=== PATIENT | female | born 1940 | race Caucasian/White ===

== ENCOUNTER 2018-12-19 14:25 | Inpatient (IN) | payer MEDICARE, OTHER ==
[~2018-12-19] VITALS: Ht 157.5 cm; Wt 51.3 kg
[2018-12-19] MEDS ORDERED: IPRATROPIUM BROMIDE 0.02% 2.5 ML NEB ONE (14:43)
[2018-12-19] MEDS ORDERED: LEVALBUTEROL HCL SOLN NEBU 1.25 MG/3 ML NEB ONE (14:44)
[2018-12-19] MEDS ORDERED: METHYLPREDNISOLONE SOD SUCC 125 MG/2ML VIAL IV ONE (15:00)
[2018-12-19] MEDS ORDERED: ALBUTEROL/IPRATROPIUM 3 ML NEB NEB ONE (15:00)
[2018-12-19 15:14] LABS: BASOPHILS # (AUTO) 0.1 (0.0-0.1); BASOPHILS % 0.4 % (0.0-1.0); EOSINOPHILS # (AUTO) 0.3 (0.0-0.4); EOSINOPHILS % 1.1 % (0.0-6.0); HEMATOCRIT 40.3 % (34.2-44.1); HEMOGLOBIN 12.8 g/dL (12.0-16.0); LYMPHOCYTES # (AUTO) 2.5 (1.0-3.2); LYMPHOCYTES % 9.9 % (18.0-39.1); MEAN CORPUSCULAR HEMOGLOBIN 27.6 pg (28-32); MEAN CORPUSCULAR HGB CONC 31.8 g/dL (31-35); MEAN CORPUSCULAR VOLUME 86.9 fL (81-99); MONOCYTES # (AUTO) 2.3 (0.2-0.8); MONOCYTES % 9.1 % (4.4-11.3); NEUTROPHILS % 78.8 % (38.7-80.0); PLATELET COUNT 409 x10e3/uL (140-360); RED BLOOD COUNT 4.64 x10e6/uL (3.6-5.1); RED CELL DISTRIBUTION WIDTH 13.6 % (11.7-14.4)
[2018-12-19 15:26] LABS: INR 0.98; PROTHROMBIN TIME 13.5 seconds (11.9-14.5)
[2018-12-19 15:35] LABS: ALBUMIN/GLOBULIN RATIO 0.6 (0.8-2.0); ANION GAP 16.2 mmol/L (8-16); CALCIUM 9.9 mg/dL (8.4-10.2); CREATINE KINASE 32 IU/L (29-168); CREATININE, SERUM 0.99 mg/dL (0.57-1.11); POTASSIUM 3.2 mmol/L (3.5-5.1)
--- NOTE | 2018-12-19 16:03 | Diagnostic Imaging Report ---
Examination: Single AP view of the chest. COMPARISON: None. INDICATION: Shortness of breath DISCUSSION: Lines/tubes: None. Lungs: Lungs are hyperinflated. No consolidation. Age-related interstitial change. Pleura: There is no pleural effusion or pneumothorax. Heart and mediastinum: The heart and the mediastinum are unremarkable. Bones and soft tissues: No acute bony abnormalities. IMPRESSION: 1. No acute cardiopulmonary abnormalities. Signed by: Dr. Finesse Zheng M.D. on 12/19/2018 4:00 PM
[2018-12-19] MEDS ORDERED: SODIUM CHLORIDE 0.9% 1000ML 1,000 ML IV SCH (17:00)
--- NOTE | 2018-12-19 17:52 | Diagnostic Imaging Report ---
EXAMINATION: CT scan of the chest with contrast. TECHNIQUE: Helical CT images of the chest were performed from the lung apices to the level of the adrenal glands after the intravenous administration of 100 cc of Isovue 300. Coronal and sagittal reformatted images were obtained.Dose modulation, iterative reconstruction, and/or weight based adjustment of the mA/kV was utilized to reduce the radiation dose to as low as reasonably achievable. COMPARISON: None. CLINICAL HISTORY:Chest pain DISCUSSION: LINES/TUBES: None. LUNGS AND AIRWAYS: The lungs are hyperinflated with emphysematous change. Mild reticulations at the lung bases. Scattered Tree-in-bud nodularity in the right lower lung image 64 and 53 for example. No pulmonary embolism. PLEURA: No pneumothorax or pleural effusions. HEART AND MEDIASTINUM: The thyroid gland is normal. The heart and pericardium are within normal limits. LYMPH NODES: There is no mediastinal, hilar or axillary lymphadenopathy. ABDOMEN: Limited contrast-enhanced views of the upper abdomen show no abnormality within the visualized liver, spleen, pancreas, or kidneys. The adrenal glands are normal. BONES AND SOFT TISSUES: No acute bony abnormalities. IMPRESSION: No pulmonary embolism. Pulmonary edema. Scattered tree-in-bud nodularity predominantly in the right lower lung may reflect infectious bronchiolitis or aspiration. Signed by: Dr. Finesse Zheng M.D. on 12/19/2018 5:49 PM
[2018-12-19] MEDS ORDERED: AZITHROMYCIN 250MG/NS 100 ML 100 ML IV SCH (18:15)
[2018-12-19] MEDS ORDERED: SODIUM CHLORIDE 0.9% 50ML 50 ML ONE (18:27)
[2018-12-19] MEDS ORDERED: IOPAMIDOL 370 MG/ML 200 ML INFUS..BTL INJ ONE (18:27)
--- OUTSIDE RECORDS SUMMARY | 2018-12-19 18:27 | XMS REPORT ---
Author Author [facility] Address Unknown Phone Unavailable Care Team Providers Care Bus Monitor Name Role Phone Noy BENTON Unavailable Unavailable Layla OCAMPO Unavailable Unavailable DR GE VALLES Unavailable Unavailable SAM JACOBSON Unavailable Unavailable DR AJIT RUSSELL Unavailable Unavailable Problems This patient has no known problems. Allergies, Adverse Reactions, Alerts This patient has no known allergies or adverse reactions. Medications This patient has no known medications. Results Test Description Test Time Test Comments Text Results Atomic Results Result Comments CT CHEST W 2018-12-19 17:45:00 [place] [address] Patient Name: CARL MARTINEZ MR #: [id number] : 1940 Age/Sex: 78/F Req #: [id number] Adm Physician: Ordered by: JOSE BENTON MD Report #: [id number] Location: ER Room/Bed: Procedure: [id number] CT/CT CHEST W Exam Date: 12/19/18 Exam Time: 1727 REPORT STATUS: Signed EXAMINATION: CT scan of the chest with contrast. TECHNIQUE: Helical CT images of the chest were performed from the lung apices to the level of the adrenal glands after the intravenous administration of 100 cc of Isovue 300. Coronal and sagittal reformatted images were obtained.Dose modulation, iterative reconstruction, and/or weight based adjustment of the mA/kV was utilized to reduce the radiation dose to as low as reasonably achievable. COMPARISON: None. CLINICAL HISTORY:Chest pain DISCUSSION: LINES/TUBES: None. LUNGS AND AIRWAYS: The lungs are hyperinflated with emphysematous change. Mild reticulations at the lung bases. Scattered Tree-in-bud nodularity in the right lower lung image 64 and 53 for example. No pulmonary embolism. PLEURA: No pneumothorax or pleural effusions. HEART AND MEDIASTINUM: The thyroid gland is normal. The heart and pericardium are within normal limits. LYMPH NODES: There is no mediastinal, hilar or axillary lymphadenopathy. ABDOMEN: Limited contrast- enhanced views of the upper abdomen show no abnormality within the visualized liver, spleen, pancreas, or kidneys. The adrenal glands are normal. BONES AND SOFT TISSUES: No acute bony abnormalities. IMPRESSION: No pulmonary embolism. Pulmonary edema. Scattered tree-in-bud nodularity predominantly in the right lower lung may reflect infectious bronchiolitis or aspiration. Signed by: Dr. Too Welsh M.D. on 12/19/2018 5:49 PM Dictated By: TOO WELSH MD 48 Transcribed By: KENNETH on 12/19/181748 COPY TO: JOSE BENTON MD CHEST SINGLE (PORTABLE) 2018-12-19 15:59:00 [place] [address] Patient Name: CARL MARTINEZ MR #: [id number] : 1940 Age/Sex: 78/F Req #: [id number] Adm Physician: Ordered by: JOSE BENTON MD Report #: [id number] Location: ER Room/Bed: Procedure: [id number] DX/CHEST SINGLE (PORTABLE) Exam Date: 12/19/18 Exam Time: 1500 REPORT STATUS: Signed Examination: Single AP view of the chest. COMPARISON: None. INDICATION: Shortness of breath DISCUSSION: Lines/tubes: None. Lungs: Lungs are hyperinflated. No consolidation. Age-related interstitial change. Pleura: There is no pleural effusion or pneumothorax. Heart and mediastinum: The heart and the mediastinum are unremarkable. Bones and soft tissues: No acute bony abnormalities. IMPRESSION: 1. No acute cardiopulmonary abnormalities. Signed by: Dr. Too Welsh M.D. on 12/19/2018 4:00 PM Dictated By: TOO WELSH MD 1600 Transcribed By: KENNETH on 12/19/18 1600 COPY TO: JOSE BENTON MD CULTURE, BLOOD 2018-09-22 16:03:00 Specimen: BloodCollected: 09/17/2018 01:43 Status: Final Last Updated: 09/22/2018 16:03 Culture Result (Final) (Final) No Growth After 5 Days CULTURE, ANAEROBE BLOOD 2018-09-22 16:03:00 Specimen: BloodCollected: 09/17/2018 01:43 Status: Final Last Updated: 09/22/2018 16:03 Culture Result (Final) (Final) No Growth After 5 Days CULTURE, BLOOD 2018-09-22 16:03:00 To start 15mins after 1st culture Specimen: BloodCollected: 09/17/2018 01:43 Status: Final Last Updated: 09/22/2018 16:03 (1) To start 15mins after 1st culture Culture Result (Final) (Final) No Growth After 5 Days CULTURE, ANAEROBE BLOOD 2018-09-22 16:03:00 Specimen: BloodCollected: 09/17/2018 01:43 Status: Final Last Updated: 09/22/2018 16:03 Culture Result (Final) (Final) No Growth After 5 Days [facility] 2018-09-18 05:02:00 Glucose (test code=GLU) 129 mg/dl 75-110 BUN (test code=BUN) 36.0 mg/dl 6.0-17.0 Creatinine (test code=CREA) 0.9 mg/dl 0.4-1.2 Sodium (test code=NA) 142 mmol/l 137-145 Potassium (test code=K) 4.2 mmol/l 3.5-5.0 Chloride (test code=CL) 109 mmol/l 98-107 CO2 (test code=CO2) 27 mmol/l 22-30 Calcium (test code=CALC) 7.9 mg/dl 8.4-10.2 EGFR if (test code=EGFRAA) >60 mL/min/1.73m\\S\\2 EGFR if Non- (test code=EGFRNA) >60 mL/min/1.73m\\S\\2 Estimated Glomerular Filtration Rate (eGFR) Reference Intervals Decision Points for 18 years and older and average body mass: >=60 Does not exclude kidney disease. 30 - 59 Suggests moderate chronic kidney disease and indicates the need for further investigation including assessment of proteinuria and cardiovascular factors. < 30 Usually indicates a need for referral for assessment and management of chronic kidney failure. CBC WITH AUTO [id number] 04:54:00* Test Item Value Reference Range Comments WBC (test code=WBC) 8.04 10\\S\\3/ul 4.80-10.80 RBC (test code=RBC) 4.05 10\\S\\6/ul 4.20-5.40 Hemoglobin (test code=HGB) 11.7 gm/dl 12.0-14.0 Hematocrit (test code=HCT) 36.8 % 37.0-47.0 MCV (test code=MCV) 90.9 fL 81.0-99.0 MCH (test code=MCH) 28.9 pg 27.0-31.0 MCHC (test code=MCHC) 31.8 gm/dl 33.0-37.0 RDW (test code=RDWVC) 14.6 % 11.5-14.5 Platelet (test code=PLT) 247 10\\S\\3/ul 130-400 MPV (test code=MPV) 11.3 fL 7.4-10.4 NE% (test code=NE) 91.8 % 42.0-75.0 LY% (test code=LY) 5.6 % 13.0-42.0 MO% (test code=MO) 1.5 % 4.0-14.0 EO% (test code=EO) 0.0 % 1.0-5.0 BA% (test code=BA) 0.1 % 0.0-3.0 IG% (test code=IG%) 1.0 % 0.0-0.4 LACTIC ACID [id number] 05:24:00* Test Item Value Reference Range Comments LACTATE (test code=LAC) 1.0 mmol/l 0.7-2.0 URINALYSIS WITH [id number] 02:20:00* Test Item Value Reference Range Comments Color (test code=UCOLR) LT. YELLOW Clarity (test code=UCLAR) CLEAR Glucose (test code=UGLUC) NEGATIVE NEGATIVE Bilirubin (test code=UBILI) NEGATIVE NEGATIVE Ketones (test code=UKET) NEGATIVE NEGATIVE Specific [place] (test code=USPGR) 1.010 1.005-1.030 Blood (test code=UBLD) NEGATIVE NEGATIVE PH (test code=UPH) 5.0 4.5-8.0 Protein (test code=UPROT) NEGATIVE NEGATIVE Urobilinogen (test code=U UROB) 0.2 >0.2 Nitrite (test code=UNITR) NEGATIVE NEGATIVE Leukocyte Esterase (test code=ULEUK) NEGATIVE NEGATIVE WBC (test code=WBCUR) 0-5 0-5 RBC (test code=RBCUR) None Seen 0-5 Epithial Cells (test code=U EPI) 0-5 0-10 Mucous (test code=UMUC) None Seen None Seen Bacteria (test code=UBACT) None Seen None Seen,Trace [id number] 01:51:00* Test Item Value Reference Range Comments Glucose (test code=GLU) 140 mg/dl 75-110 BUN (test code=BUN) 52.0 mg/dl 6.0-17.0 Creatinine (test code=CREA) 1.3 mg/dl 0.4-1.2 Sodium (test code=NA) 135 mmol/l 137-145 Potassium (test code=K) 3.7 mmol/l 3.5-5.0 Chloride (test code=CL) 101 mmol/l 98-107 CO2 (test code=CO2) 28 mmol/l 22-30 Calcium (test code=CALC) 8.0 mg/dl 8.4-10.2 EGFR if (test code=EGFRAA) 51 mL/min/1.73m\\S\\2 EGFR if Non- (test code=EGFRNA) 42 mL/min/1.73m\\S\\2 Estimated Glomerular Filtration Rate (eGFR) Reference Intervals Decision Points for 18 years and older and average body mass: >=60 Does not exclude kidney disease. 30 - 59 Suggests moderate chronic kidney disease and indicates the need for further investigation including assessment of proteinuria and cardiovascular factors. < 30 Usually indicates a need for referral for assessment and management of chronic kidney failure. CBC WITH AUTO [id number] 01:38:00* Test Item Value Reference Range Comments WBC (test code=WBC) 9.75 10\\S\\3/ul 4.80-10.80 RBC (test code=RBC) 3.95 10\\S\\6/ul 4.20-5.40 Hemoglobin (test code=HGB) 11.7 gm/dl 12.0-14.0 Hematocrit (test code=HCT) 35.6 % 37.0-47.0 MCV (test code=MCV) 90.1 fL 81.0-99.0 MCH (test code=MCH) 29.6 pg 27.0-31.0 MCHC (test code=MCHC) 32.9 gm/dl 33.0-37.0 RDW (test code=RDWVC) 14.7 % 11.5-14.5 Platelet (test code=PLT) 256 10\\S\\3/ul 130-400 MPV (test code=MPV) 11.2 fL 7.4-10.4 "NOT MEASURED" RESULTS ARE DISPLAYED WHEN THE INSTRUMENT HAS A SUPPRESSED OR UNREPORTABLE RESULT. THIS WILL MOST OFTEN HAPPEN WITH THE MPV WHEN THERE IS AN ABNORMAL PLATELET DISTRIBUTION DUE TO A CR ITICAL LOW VALUE OR PLATELET CLUMPING. THE RDW MAY BE SUPPRESSED IF THERE ARE MULTIPLE PEAKS PRESENT ON THE RBC HISTOGRAM. IN THIS CASE, A MANUAL REVIEW OF THE SLIDE WILL BE PERFORMED, AND RBC MORPHOLOGY WILL BE NOTED ON THE REPORT. NE% (test code=NE) 90.2 % 42.0-75.0 LY% (test code=LY) 3.5 % 13.0-42.0 MO% (test code=MO) 5.5 % 4.0-14.0 EO% (test code=EO) 0.0 % 1.0-5.0 BA% (test code=BA) 0.1 % 0.0-3.0 IG% (test code=IG%) 0.7 % 0.0-0.4 [id number] 15:26:00* Test Item Value Reference Range Comments pH (ABG) (test code=BGPH) 7.391 7.350-7.450 pCO2(T) (test code=BGPCO2(T)) 42.8 mm Hg 35.0-45.0 pO2(T) (test code=BGPO2(T)) 67.3 mm Hg 80.0-100.0 sO2 (test code=BGSO2) 94.7 % 90.0-99.0 Na+ (test code=BGCNA+) 137.9 mmol/l 135.0-148.0 K+ (test code=BGCK+) 3.86 mmol/l 3.50-4.50 Ca2+ (test code=BGCCA2+) 1.190 mmol/l 1.120-1.320 Cl- (test code=BGCCL-) 98 mmol/l 98-107 tHb (test code=BGCTHB) 12.0 gm/dl 11.5-17.4 Hct (test code=BGHCT) 42.9 35.0-50.0 O2Hb (test code=WILS3EE) 93.3 % 95.0-99.0 COHb (test code=BGFCOHB) <2.80 % 0.5-2.5 MetHB (test code=BGMETHB) <1.30 % 0.4-1.5 Gluc (test code=BGCGLU) 159.0 mg/dl 60.0-110.0 Lac (test code=BGCLAC) 2.60 mmol/l 1.0-1.7 Barometric Pressure (test code=BGBARO) 763.4 mm Hg 450.0-1000.0 BE(act) (test code=BGBEACT) 1 mmol/l HCO3 (test code=BGHCO3) 25 meq/L 22-26 ctCO2(B) (test code=BGCTCO2(B)) 23 mmol/l FIO2 (fO2(I) (test code=BGFIO2) 0.28 % Drawn By (test code=BGDRAWNBY) KATINA CONNOLLY Collection Date (test code=BGDTCOL) 09/16/2018 Collection Time (test code=BGCTM) 15:16 Sample Site (test code=BGSAMPLESITE) R Brachial Sample Type (test code=BGSAMPLETYPE) Arterial Allens Test (test code=BGALLEN) Acceptable Notified By (test code=BGNOTIFIEDBY) KATINA CONNOLLY Notified Whom (test code=BGNOTIFIEDWHOM) Dr cOampo Date Notified (test code=BGDTNOTIFIED) 09/16/2018 Time Notified (test code=BGTMNOTIFIED) 15:24 O2 Device (test code=[id number]) Nasal Cannula Instrument ID (test code=BGINSTRID) [id number] Reported By (test code=BGREPORTEDBY) KATINA CONNOLLY LACTIC ACID [id number] 11:58:00* Test Item Value Reference Range Comments LACTATE (test code=LAC) 3.7 mmol/l 0.7-2.0 Critical values were called to Treasure De La Torre RN by [id number] on 09/16/18 11:58 AUDIO/VISUAL OPERATOR. Results were not read back.XR CHEST AP/PA 1 [id number] 10:53:27A single frontal view of the chest.HISTORY: Cough, shortness of breath, COPDCOMPARISON: Chest radiograph September 12, 2018.DISCUSSION:Portable technique, which partially limits sensitivity and specificity.Overlying monitoring leads.Tubes/Lines: NoneLungs and pleura:Stable appearing biapical pleural-parenchymal scarring.The lungs are mildly hyperinflated.No evidence of a consolidative pneumonia or pulmonary alveolar edema.No definite pleural effusion or pneumothorax is ident ified.Heart and mediastinum:The cardiomediastinal silhouette appears unremarkabl e.Bones and soft tissues:Unremarkable, given this limited evaluation.IMPRESSION: Persistent hyperinflation, compatible with the provided history of COPD.This fin al report was electronically signed by Dr Ryan Hooper DO 09/16/201810:47 AMDicta mejia By: Zan HOOPERte: 09/16/2018 10:[id number] 05:37:00* Test Item Value Reference Range Comments Magnesium (test code=MG) 2.3 mg/dl 1.6-2.6 [id number] 05:21:00* Test Item Value Reference Range Comments Glucose (test code=GLU) 146 mg/dl 75-110 BUN (test code=BUN) 40.0 mg/dl 6.0-17.0 Creatinine (test code=CREA) 1.0 mg/dl 0.4-1.2 Sodium (test code=NA) 138 mmol/l 137-145 Potassium (test code=K) 4.1 mmol/l 3.5-5.0 Chloride (test code=CL) 101 mmol/l 98-107 CO2 (test code=CO2) 32 mmol/l 22-30 Calcium (test code=CALC) 9.1 mg/dl 8.4-10.2 EGFR if (test code=EGFRAA) >60 mL/min/1.73m\\S\\2 EGFR if Non- (test code=EGFRNA) 57 mL/min/1.73m\\S\\2 Estimated Glomerular Filtration Rate (eGFR) Reference Intervals Decision Points for 18 years and older and average body mass: >=60 Does not exclude kidney disease. 30 - 59 Suggests moderate chronic kidney disease and indicates the need for further investigation including assessment of proteinuria and cardiovascular factors. < 30 Usually indicates a need for referral for assessment and management of chronic kidney failure. CBC WITH AUTO [id number] 04:49:00* Test Item Value Reference Range Comments WBC (test code=WBC) 8.38 10\\S\\3/ul 4.80-10.80 RBC (test code=RBC) 4.05 10\\S\\6/ul 4.20-5.40 Hemoglobin (test code=HGB) 11.7 gm/dl 12.0-14.0 Hematocrit (test code=HCT) 36.9 % 37.0-47.0 MCV (test code=MCV) 91.1 fL 81.0-99.0 MCH (test code=MCH) 28.9 pg 27.0-31.0 MCHC (test code=MCHC) 31.7 gm/dl 33.0-37.0 RDW (test code=RDWVC) 14.4 % 11.5-14.5 Platelet (test code=PLT) 243 10\\S\\3/ul 130-400 MPV (test code=MPV) 11.0 fL 7.4-10.4 NE% (test code=NE) 89.0 % 42.0-75.0 LY% (test code=LY) 5.8 % 13.0-42.0 MO% (test code=MO) 4.7 % 4.0-14.0 EO% (test code=EO) 0.0 % 1.0-5.0 BA% (test code=BA) 0.0 % 0.0-3.0 IG% (test code=IG%) 0.5 % 0.0-0.4 [id number] 05:55:00* Test Item Value Reference Range Comments Glucose (test code=GLU) 126 mg/dl 75-110 BUN (test code=BUN) 27.0 mg/dl 6.0-17.0 Creatinine (test code=CREA) 0.8 mg/dl 0.4-1.2 Sodium (test code=NA) 137 mmol/l 137-145 Potassium (test code=K) 4.3 mmol/l 3.5-5.0 Chloride (test code=CL) 100 mmol/l 98-107 CO2 (test code=CO2) 30 mmol/l 22-30 Calcium (test code=CALC) 9.3 mg/dl 8.4-10.2 EGFR if (test code=EGFRAA) >60 mL/min/1.73m\\S\\2 EGFR if Non- (test code=EGFRNA) >60 mL/min/1.73m\\S\\2 Estimated Glomerular Filtration Rate (eGFR) Reference Intervals Decision Points for 18 years and older and average body mass: >=60 Does not exclude kidney disease. 30 - 59 Suggests moderate chronic kidney disease and indicates the need for further investigation including assessment of proteinuria and cardiovascular factors. < 30 Usually indicates a need for referral for assessment and management of chronic kidney failure. CBC WITH AUTO [id number] 05:24:00* Test Item Value Reference Range Comments WBC (test code=WBC) 9.28 10\\S\\3/ul 4.80-10.80 RBC (test code=RBC) 4.06 10\\S\\6/ul 4.20-5.40 Hemoglobin (test code=HGB) 11.9 gm/dl 12.0-14.0 Hematocrit (test code=HCT) 36.5 % 37.0-47.0 MCV (test code=MCV) 89.9 fL 81.0-99.0 MCH (test code=MCH) 29.3 pg 27.0-31.0 MCHC (test code=MCHC) 32.6 gm/dl 33.0-37.0 RDW (test code=RDWVC) 14.1 % 11.5-14.5 Platelet (test code=PLT) 261 10\\S\\3/ul 130-400 MPV (test code=MPV) 10.8 fL 7.4-10.4 "NOT MEASURED" RESULTS ARE DISPLAYED WHEN THE INSTRUMENT HAS A SUPPRESSED OR UNREPORTABLE RESULT. THIS WILL MOST OFTEN HAPPEN WITH THE MPV WHEN THERE IS AN ABNORMAL PLATELET DISTRIBUTION DUE TO A CR ITICAL LOW VALUE OR PLATELET CLUMPING. THE RDW MAY BE SUPPRESSED IF THERE ARE MULTIPLE PEAKS PRESENT ON THE RBC HISTOGRAM. IN THIS CASE, A MANUAL REVIEW OF THE SLIDE WILL BE PERFORMED, AND RBC MORPHOLOGY WILL BE NOTED ON THE REPORT. NE% (test code=NE) 84.0 % 42.0-75.0 LY% (test code=LY) 8.4 % 13.0-42.0 MO% (test code=MO) 7.2 % 4.0-14.0 EO% (test code=EO) 0.0 % 1.0-5.0 BA% (test code=BA) 0.1 % 0.0-3.0 IG% (test code=IG%) 0.3 % 0.0-0.4 [id number] 18:37:00* Test Item Value Reference Range Comments Glucose (test code=GLU) 147 mg/dl 74-106 BUN (test code=BUN) 16.0 mg/dl 7.0-18.0 Creatinine (test code=CREA) 0.8 mg/dl 0.5-1.3 Sodium (test code=NA) 136 mmol/l 137-145 Potassium (test code=K) 4.7 mmol/l 3.5-5.1 Chloride (test code=CL) 101 mmol/l 98-107 CO2 (test code=CO2) 27 mmol/l 21-32 Calcium (test code=CALC) 8.7 mg/dl 8.5-10.1 EGFR if (test code=EGFRAA) >60 mL/min/1.73m\\S\\2 EGFR if Non- (test code=EGFRNA) >60 mL/min/1.73m\\S\\2 Estimated Glomerular Filtration Rate (eGFR) Reference Intervals Decision Points for 18 years and older and average body mass: >=60 Does not exclude kidney disease. 30 - 59 Suggests moderate chronic kidney disease and indicates the need for further investigation including assessment of proteinuria and cardiovascular factors. < 30 Usually indicates a need for referral for assessment and management of chronic kidney failure. CBC WITH AUTO [id number] 18:35:00* Test Item Value Reference Range Comments WBC (test code=WBC) 3.78 10\\S\\3/ul 4.80-10.80 RBC (test code=RBC) 4.82 10\\S\\6/ul 4.20-5.40 Hemoglobin (test code=HGB) 13.8 gm/dl 12.0-14.0 Hematocrit (test code=HCT) 44.3 % 37.0-47.0 MCV (test code=MCV) 91.9 fL 81.0-99.0 MCH (test code=MCH) 28.6 pg 27.0-31.0 MCHC (test code=MCHC) 31.2 gm/dl 33.0-37.0 RDW (test code=RDWVC) 14.3 % 11.5-14.5 Platelet (test code=PLT) 186 10\\S\\3/ul 130-400 MPV (test code=MPV) 11.4 fL 7.4-10.4 NE% (test code=NE) 82.7 % 42.0-75.0 LY% (test code=LY) 14.6 % 13.0-42.0 MO% (test code=MO) 2.1 % 4.0-14.0 EO% (test code=EO) 0.0 % 1.0-5.0 BA% (test code=BA) 0.3 % 0.0-3.0 IG% (test code=IG%) 0.3 % 0.0-0.4 [id number] 14:57:00* Test Item Value Reference Range Comments Magnesium (test code=MG) 3.9 mg/dl 1.6-2.6 [id number] 14:55:00* Test Item Value Reference Range Comments Glucose (test code=GLU) 112 mg/dl 75-110 BUN (test code=BUN) 14.0 mg/dl 6.0-17.0 Creatinine (test code=CREA) 0.8 mg/dl 0.4-1.2 Sodium (test code=NA) 137 mmol/l 137-145 Potassium (test code=K) 4.4 mmol/l 3.5-5.0 Chloride (test code=CL) 101 mmol/l 98-107 CO2 (test code=CO2) 29 mmol/l 22-30 Calcium (test code=CALC) 9.2 mg/dl 8.4-10.2 T Protein (test code=TP) 7.7 gm/dl 5.1-8.7 Albumin (test code=ALB) 3.6 gm/dl 3.5-4.6 A/G Ratio (test code=AGRAT) 0.9 % 1.1-2.2 AST (SGOT) (test code=AST) 25 U/L 11-36 ALT (SGPT) (test code=ALT) 21 U/L 11-40 Alkaline Phos (test code=ALKP) 78 U/L 47-114 Total Bilirubin (test code=TBIL) 0.2 mg/dl 0.2-1.2 Globulin (test code=GLOBU) 4.1 gm/dl 2.3-3.5 Calcium, Corrected (test code=CALCCORR) 9.5 mg/dl 8.4-10.2 Various formulas exist for corrected serum calcium results, each yielding different values. This corrected result was based on the formula: Corrected Calcium=SerumCalcium + [0.8 * ( 4 - SerumAlbumin)] EGFR if (test code=EGFRAA) >60 mL/min/1.73m\\S\\2 EGFR if Non- (test code=EGFRNA) >60 mL/min/1.73m\\S\\2 Estimated Glomerular Filtration Rate (eGFR) Reference Intervals Decision Points for 18 years and older and average body mass: >=60 Does not exclude kidney disease. 30 - 59 Suggests moderate chronic kidney disease and indicates the need for further investigation including assessment of proteinuria and cardiovascular factors. < 30 Usually indicates a need for referral for assessment and management of chronic kidney failure. TROPONIN-I [id number] 14:55:00* Test Item Value Reference Range Comments Troponin-I (test code=TROP) <0.015 ng/ml 0.000-0.034 The 99th Percentile URL is 0.045 ng/mL for the Siemens [place] Troponin I. The Joint Society of Cardiology/[place] [employer] (ESC/ACC) and the National Academy of Clinical Biochemistry Standards of Laboratory Practices (NACB) recommends that the diagnosis of AMI includes the presence of clinical history suggestive of Acute Coronary Syndrome (ACS) and a maximum concentration of cardiac troponin exceeding the 99th percentile of a normal reference population [upper reference limit (URL)] on at least one occasion during the first 24 hours after the clinical event. PRO-BNP(B-Type Natriuretic Peptide)2018-09-12 14:55:00* Test Item Value Reference Range Comments Pro-BNP(B-Peptide) (test code=PROBNP) 810 pg/ml 0-450 [id number] 14:44:00* Test Item Value Reference Range Comments pH (ABG) (test code=BGPH) 7.325 7.350-7.450 pCO2(T) (test code=BGPCO2(T)) 50.9 mm Hg 35.0-45.0 pO2(T) (test code=BGPO2(T)) 117.3 mm Hg 80.0-100.0 sO2 (test code=BGSO2) 98.5 % 90.0-99.0 Na+ (test code=BGCNA+) 138.3 mmol/l 135.0-148.0 K+ (test code=BGCK+) 3.80 mmol/l 3.50-4.50 Ca2+ (test code=BGCCA2+) 1.250 mmol/l 1.120-1.320 Cl- (test code=BGCCL-) 98 mmol/l 98-107 tHb (test code=BGCTHB) 13.2 gm/dl 11.5-17.4 Hct (test code=BGHCT) 44.7 35.0-50.0 O2Hb (test code=OGIZ6LR) >95.0 % 95.0-99.0 COHb (test code=BGFCOHB) <2.80 % 0.5-2.5 MetHB (test code=BGMETHB) <1.30 % 0.4-1.5 Gluc (test code=BGCGLU) 136.0 mg/dl 60.0-110.0 Lac (test code=BGCLAC) <1.60 mmol/l 1.0-1.7 Barometric Pressure (test code=BGBARO) 770.3 mm Hg 450.0-1000.0 BE(act) (test code=BGBEACT) -1 mmol/l HCO3 (test code=BGHCO3) 24 meq/L 22-26 ctCO2(B) (test code=BGCTCO2(B)) 23 mmol/l FIO2 (fO2(I) (test code=BGFIO2) 0.30 % Drawn By (test code=BGDRAWNBY) KATINA CONNOLLY Collection Date (test code=BGDTCOL) 09/12/2018 Collection Time (test code=BGCTM) 13:56 Sample Site (test code=BGSAMPLESITE) L Brachial Sample Type (test code=BGSAMPLETYPE) Arterial Allens Test (test code=BGALLEN) Acceptable Notified By (test code=BGNOTIFIEDBY) KATINA CONNOLLY Notified Whom (test code=BGNOTIFIEDWHOM) Dr Gunter Date Notified (test code=BGDTNOTIFIED) 09/12/2018 Time Notified (test code=BGTMNOTIFIED) 14:02 O2 Device (test code=[id number]) BIPAP Instrument ID (test code=BGINSTRID) [id number] Reported By (test code=BGREPORTEDBY) KATINA CONNOLLY PT AND [id number] 14:39:00* Test Item Value Reference Range Comments Protime (test code=PT) 10.0 seconds 9.0-11.8 INR (test code=INR) 1.0 0.9-1.1 INR results are intended ONLY to monitor Oral Anticoagulant therapy in stablized patients. The INR Therapeutic Range is 2.0 - 3.0 Patients with a mechanical heart, the INR Range is 2.5 - 3.5 XR CHEST AP/PA 1 [id number] 14:33:12Portable chest September 12, 2018 at 1409 hrs.History: DyspneaCompared to September 08, 2018. Hyperinflation is again noted. The lungs are clearof infiltrates. No vascular congestion is noted. Cardiac size is within normallimits. The bony thorax is intact.Impression: Stable chest. Hyperinflation is again noted. There is no acuteabnormality.This final report was electronically signed by Dr Ghassan Marte MD 09/12/20182:27 PMDictated By: GHASSAN MARTEDate: 09/12/2018 14:27CBC WITH AUTO [id number] 14:21:00* Test Item Value Reference Range Comments WBC (test code=WBC) 11.80 10\\S\\3/ul 4.80-10.80 RBC (test code=RBC) 4.58 10\\S\\6/ul 4.20-5.40 Hemoglobin (test code=HGB) 13.3 gm/dl 12.0-14.0 Hematocrit (test code=HCT) 41.8 % 37.0-47.0 MCV (test code=MCV) 91.3 fL 81.0-99.0 MCH (test code=MCH) 29.0 pg 27.0-31.0 MCHC (test code=MCHC) 31.8 gm/dl 33.0-37.0 RDW (test code=RDWVC) 14.4 % 11.5-14.5 Platelet (test code=PLT) 292 10\\S\\3/ul 130-400 MPV (test code=MPV) 11.3 fL 7.4-10.4 NE% (test code=NE) 79.9 % 42.0-75.0 LY% (test code=LY) 11.2 % 13.0-42.0 MO% (test code=MO) 8.2 % 4.0-14.0 EO% (test code=EO) 0.1 % 1.0-5.0 BA% (test code=BA) 0.3 % 0.0-3.0 IG% (test code=IG%) 0.3 % 0.0-0.4 PRO-BNP(B-Type Natriuretic Peptide)2018-09-08 18:42:00* Test Item Value Reference Range Comments Pro-BNP(B-Peptide) (test code=PROBNP) 1217 pg/ml 0-450 Result called to Erlinda Ramirez RN-ER read back [id number] 18:40:00* Test Item Value Reference Range Comments Glucose (test code=GLU) 111 mg/dl 75-110 BUN (test code=BUN) 14.0 mg/dl 6.0-17.0 Creatinine (test code=CREA) 0.9 mg/dl 0.4-1.2 Sodium (test code=NA) 136 mmol/l 137-145 Potassium (test code=K) 3.7 mmol/l 3.5-5.0 Chloride (test code=CL) 101 mmol/l 98-107 CO2 (test code=CO2) 27 mmol/l 22-30 Calcium (test code=CALC) 8.6 mg/dl 8.4-10.2 T Protein (test code=TP) 7.6 gm/dl 5.1-8.7 Albumin (test code=ALB) 3.3 gm/dl 3.5-4.6 A/G Ratio (test code=AGRAT) 0.8 % 1.1-2.2 AST (SGOT) (test code=AST) 22 U/L 11-36 ALT (SGPT) (test code=ALT) 13 U/L 11-40 Alkaline Phos (test code=ALKP) 86 U/L 47-114 Total Bilirubin (test code=TBIL) 0.2 mg/dl 0.2-1.2 Globulin (test code=GLOBU) 4.3 gm/dl 2.3-3.5 Calcium, Corrected (test code=CALCCORR) 9.2 mg/dl 8.4-10.2 Various formulas exist for corrected serum calcium results, each yielding different values. This corrected result was based on the formula: Corrected Calcium=SerumCalcium + [0.8 * ( 4 - SerumAlbumin)] EGFR if (test code=EGFRAA) >60 mL/min/1.73m\\S\\2 EGFR if Non- (test code=EGFRNA) >60 mL/min/1.73m\\S\\2 Estimated Glomerular Filtration Rate (eGFR) Reference Intervals Decision Points for 18 years and older and average body mass: >=60 Does not exclude kidney disease. 30 - 59 Suggests moderate chronic kidney disease and indicates the need for further investigation including assessment of proteinuria and cardiovascular factors. < 30 Usually indicates a need for referral for assessment and management of chronic kidney failure. CBC WITH AUTO [id number] 18:17:00* Test Item Value Reference Range Comments WBC (test code=WBC) 7.15 10\\S\\3/ul 4.80-10.80 RBC (test code=RBC) 4.11 10\\S\\6/ul 4.20-5.40 Hemoglobin (test code=HGB) 12.2 gm/dl 12.0-14.0 Hematocrit (test code=HCT) 37.5 % 37.0-47.0 MCV (test code=MCV) 91.2 fL 81.0-99.0 MCH (test code=MCH) 29.7 pg 27.0-31.0 MCHC (test code=MCHC) 32.5 gm/dl 33.0-37.0 RDW (test code=RDWVC) 14.6 % 11.5-14.5 Platelet (test code=PLT) 234 10\\S\\3/ul 130-400 MPV (test code=MPV) 10.4 fL 7.4-10.4 "NOT MEASURED" RESULTS ARE DISPLAYED WHEN THE INSTRUMENT HAS A SUPPRESSED OR UNREPORTABLE RESULT. THIS WILL MOST OFTEN HAPPEN WITH THE MPV WHEN THERE IS AN ABNORMAL PLATELET DISTRIBUTION DUE TO A CR ITICAL LOW VALUE OR PLATELET CLUMPING. THE RDW MAY BE SUPPRESSED IF THERE ARE MULTIPLE PEAKS PRESENT ON THE RBC HISTOGRAM. IN THIS CASE, A MANUAL REVIEW OF THE SLIDE WILL BE PERFORMED, AND RBC MORPHOLOGY WILL BE NOTED ON THE REPORT. NE% (test code=NE) 70.7 % 42.0-75.0 LY% (test code=LY) 12.4 % 13.0-42.0 MO% (test code=MO) 15.7 % 4.0-14.0 EO% (test code=EO) 0.1 % 1.0-5.0 BA% (test code=BA) 0.7 % 0.0-3.0 IG% (test code=IG%) 0.4 % 0.0-0.4 XR CHEST 2 PA [id number] 14:05:35PA and lateral chest:Exam Date: 09/08/2018History: COPD, wheezingCompared to June 01, 2018. The lungs are again hyperinflated but appearclear. Cardiac size is within normal limits. Mild atherosclerotic calcificationin the aortic arch is again noted. There are no significant bony abnormalities.Impression: Stable chest. Hyperinflation with no acute cardiopulmonaryabnormalities identified.This final report was electronically signed by Dr Ghassan Marte MD 09/08/20181:59 PMDictated By: Johnnie MARTEte: 09/08/2018 13:59CT ANGIO CHEST W/WO or W/ [id number] 15:29:3320 g Cathlon Above the Antecubital or higher requi redCTA chest:History: COPDCT angiography of the chest was performed using multidetector helical imagingfollowing bolus intravenous injection of 100 mL of Isovue-370. Imagepostprocessing was performed on the same workstation yielding coronal 3-D MIPimages and sagittal reconstructions. Dose reduction technique was employed usingautomated exposure control and adjustment of mA and/or kV according to michelle entsize. Total DLP 578 mGy-cm.No pulmonary embolus is identified. The thoracic a sherri and visualized upperabdominal aorta show no acute abnormality. Calcific ath erosclerosis is present.The lungs are mild hyperinflated and are clear of infilt rates. Moderateemphysematous changes are present, primarily in the upper lobes. There is nopleural or pericardial effusion. Sections through the visualized uppe r abdomenshow no acute abnormality. The bony thorax is intact.Impression:No pulm onary embolus or acute vascular abnormality is identified.Atherosclerosis and ch anges of emphysema are noted.This final report was electronically signed by Dr Destiny Marte MD 06/13/20183:23 PMDictated By: Maria Dolores MARTE: 8 15:23BLOOD UREA NTIROGEN (BUN)2018-06-13 14:26:00* Test Item Value Reference Range Comments BUN (test code=BUN) 12.0 mg/dl 6.0-17.0 CREATININE, [id number] 14:26:00* Test Item Value Reference Range Comments Creatinine (test code=CREA) 0.8 mg/dl 0.4-1.2 EGFR if (test code=EGFRAA) >60 mL/min/1.73m\\S\\2 EGFR if Non- (test code=EGFRNA) >60 mL/min/1.73m\\S\\2 Estimated Glomerular Filtration Rate (eGFR) Reference Intervals Decision Points for 18 years and older and average body mass: >=60 Does not exclude kidney disease. 30 - 59 Suggests moderate chronic kidney disease and indicates the need for further investigation including assessment of proteinuria and cardiovascular factors. < 30 Usually indicates a need for referral for assessment and management of chronic kidney failure. XR CHEST 2 PA [id number] 15:12:02PA and lateral chest:History: DyspneaCompared to May 01, 2011. The lungs are hyperinflated and hyperlucent. Noinfiltrate or vascular congestion is noted. Cardiac size is within normallimits. Vascular calcification in the thoracic aorta is again noted. The bonythorax appears intact.Impression: Stable chest. Changes of emphysema with no acute abnormalityidentified.This final report was electro nically signed by Dr Ghassan Marte MD 06/01/20183:05 PMDictated By: LUIS MARTE CHARDDate: 06/01/2018 15:05US VEINS BILAT LEGS [id number] 13:04:47 Bilateral lower extremity venous Doppler ultrasound:Exam Date: 04/07/2018Preet thurston Physician: Dr Ajit AngelonClinical Indication: Bilateral lower extremity swel lingDuplex scanning, spectral analysis and real-time grayscale and color Doppler imaging of the bilateral lower extremity venous system was performed.The deep ve ins of both lower extremities were compressible. Spontaneous phasicflow and augm entation was noted. No intraluminal thrombus was visualized. Thevisualized great er saphenous vein appeared patent. No popliteal cyst isidentified.Impression: No evidence of DVT.This final report was electronically signed by Dr Ghassan montano MD 04/07/201812:58 PMDictated By: GHASSAN MARTEDate: 04/07/2018 13:04
--- OUTSIDE RECORDS SUMMARY | 2018-12-19 18:27 | XMS REPORT | Continuity of Care Document ---
Author Author [facility] Address [address] [place] [address] ;ext= Care Team Providers Care Manager Family Name Role Phone DR ANDRE RUSSELL DR ANDRE RUSSELL [facility] Admission Diagnosis Code Admission Diagnosis Date [id number] Coag./bleeding tests abnormal Social History Element Description Code Description Smoking Status Code System Start Date End Date Smoking Status [id number] Former smoker SNOMED-CT Problems * No data in the system Medications SNOMED CT Description 560079411 Drug Treatment Unknown Allergies * No Allergy Data in the System Results Radiology Results Order: [id number] US VEINS BILAT LEGS Doppler* Exam Completion Date:04/07/2018 11:14 Bilateral lower extremity venous Doppler ultrasound:Exam Date: 04/07/2018Preet thurston Physician: Dr Andre AngelonClinical Indication: Bilateral lower extremity swel lingDuplex [...] final report was electronically signed by Dr Monica montano MD 04/07/201812:58 PMDictated By: MONICA MARTEDate: 04/07/2018 13:04 Vital Signs * No data in the system Plan of Care * No data in the system Procedures Code Code System Procedure Name Target Site Date of Procedure US VEINS BILAT LEGS Doppler 04/07/2018 13:04 Encounters Date Code Diagnosis Status (ICD10) - R791 ABNORMAL COAGULATION PROFILE Active Immunizations * No data in the system Functional Status * No data in the system Hospital Discharge Instructions * No data in the system
--- OUTSIDE RECORDS SUMMARY | 2018-12-19 18:28 | XMS REPORT | Continuity of Care Document ---
Author Author [facility] Address [address] [place] [address] ;ext= Care Team Providers Care Ballistics Teacher Name Role Phone NED CLARK Admphys [facility]ED CL[facility] Admission Diagnosis Code Admission Diagnosis Date [id number] Cough Social History Element Description Code Description Smoking Status Code System Start Date End Date Smoking Status [id number] Never smoker SNOMED-CT Problems Code Code System Problem Name Start Date End Date Status 851905419 SNOMED-CT Acute exacerbation of chronic obstructive airways disease 09/08/2018 Active Medications RxNorm Medication Dose Route Instructions Indications Start Date End Date Status [id number] Albuterol 0.833 MG/ML / Ipratropium [place] 0.167 MG/ML Inhalant Solution 3 milliliter Inhalation inhaled every 4 to 6 hours as needed. (as needed for wheezing) wheezing Active Allergies * No Known Allergies Results Laboratory Results Order: CBC PLATELET AUTO DIFF Specimen Source: BLOOD Body Site: [facility] Test Result Flag Range Unit Date 1Leukocytes^^corrected for nucleated erythrocytes:NCnc:Pt:Bld:Qn:Automated count 7.15 4.80-10.80 10^3/ul 09/08/2018 18:14 789-8 1Erythrocytes:NCnc:Pt:Bld:Qn:Automated count 4.11 L 4.20-5.40 10^6/ul 09/08/2018 18:14 718-7 1Hemoglobin:MCnc:Pt:Bld:Qn 12.2 12.0-14.0 gm/dl 09/08/2018 18:14 4544-3 1Hematocrit:VFr:Pt:Bld:Qn:Automated count 37.5 37.0-47.0 % 09/08/2018 18:14 787-2 1Erythrocyte mean corpuscular volume:EntVol:Pt:RBC:Qn:Automated count 91.2 81.0-99.0 fL 09/08/2018 18:14 785-6 1Erythrocyte mean corpuscular hemoglobin:EntMass:Pt:RBC:Qn:Automated count 29.7 27.0-31.0 pg 09/08/2018 18:14 786-4 1Erythrocyte mean corpuscular hemoglobin concentration:MCnc:Pt:RBC:Qn:Automated count 32.5 L 33.0-37.0 gm/dl 09/08/2018 18:14 788-0 1Erythrocyte distribution width:Ratio:Pt:RBC:Qn:Automated count 14.6 H 11.5-14.5 % 09/08/2018 18:14 777-3 1Platelets:NCnc:Pt:Bld:Qn:Automated count 234 130-400 10^3/ul 09/08/2018 18:14 25828-2 1Platelet mean volume:EntVol:Pt:Bld:Qn:Automated count 10.4 A 7.4-10.4 fL 09/08/2018 18:14 Note: 'NOT MEASURED' RESULTS ARE DISPLAYED WHEN THE INSTRUMENT HAS A SUPPRESSED OR UNREPORTABLE RESULT. THIS WILL MOST OFTEN HAPPEN WITH THE MPV WHEN THERE IS AN ABNORMAL PLATELET DISTRIBUTION DUE TO A CRITICAL LOW VALUE OR PLATELET CLUMPING. THE RDW MAY BE SUPPRESSED IF THERE ARE MULTIPLE PEAKS PRESENT ON THE RBC HISTOGRAM. IN THIS CASE, A MANUAL REVIEW OF THE SLIDE WILL BE PERFORMED, AND RBC MORPHOLOGY WILL BE NOTED ON THE REPORT. 770-8 1Neutrophils/100 leukocytes:NFr:Pt:Bld:Qn:Automated count 70.7 42.0-75.0 % 09/08/2018 18:14 736-9 1Lymphocytes/100 leukocytes:NFr:Pt:Bld:Qn:Automated count 12.4 L 13.0-42.0 % 09/08/2018 18:14 5905-5 1Monocytes/100 leukocytes:NFr:Pt:Bld:Qn:Automated count 15.7 H 4.0-14.0 % 09/08/2018 18:14 713-8 1Eosinophils/100 leukocytes:NFr:Pt:Bld:Qn:Automated count 0.1 L 1.0-5.0 % 09/08/2018 18:14 706-2 1Basophils/100 leukocytes:NFr:Pt:Bld:Qn:Automated count 0.7 0.0-3.0 % 09/08/2018 18:14 1IG% 0.4 0.0-0.4 % 09/08/2018 18:14 * Performing Lab Footnotes:* [address] [place] [address] - [id number] - [address] [place] [address] - MD: DIRECTOR TUSHAR DONOVAN Order: CMP COMPREHENSIVE METABOLIC PANEL Specimen Source: BLOOD Body Site: LOINC Test Result Flag Range Unit Date 1Glucose 111 H 75-110 mg/dl 09/08/2018 18:14 1BUN 14 6.0-17.0 mg/dl 09/08/2018 18:14 1Creatinine 0.9 0.4-1.2 mg/dl 09/08/2018 18:14 1Sodium 136 L 137-145 mmol/l 09/08/2018 18:14 1Potassium 3.7 3.5-5.0 mmol/l 09/08/2018 18:14 1Chloride 101 98-107 mmol/l 09/08/2018 18:14 1CO2 27 22-30 mmol/l 09/08/2018 18:14 1Calcium 8.6 8.4-10.2 mg/dl 09/08/2018 18:14 1T Protein 7.6 5.1-8.7 gm/dl 09/08/2018 18:14 1Albumin 3.3 L 3.5-4.6 gm/dl 09/08/2018 18:14 1A/G Ratio 0.8 L 1.1-2.2 % 09/08/2018 18:14 1AST (SGOT) 22 11-36 U/L 09/08/2018 18:14 1ALT (SGPT) 13 11-40 U/L 09/08/2018 18:14 1Alkaline Phos 86 47-114 U/L 09/08/2018 18:14 1Total Bilirubin 0.2 0.2-1.2 mg/dl 09/08/2018 18:14 1Globulin 4.3 H 2.3-3.5 gm/dl 09/08/2018 18:14 1Calcium, Corrected 9.2 8.4-10.2 mg/dl 09/08/2018 18:14 Note: Various formulas exist for corrected serum calcium results, each yielding different values. This corrected result was based on the formula: Corrected Calcium=SerumCalcium + [0.8 * ( 4 - SerumAlbumin)] 1EGFR if >60 mL/min/1.73m^2 09/08/2018 18:14 1EGFR if Non- >60 mL/min/1.73m^2 09/08/2018 18:14 Note: Estimated Glomerular Filtration Rate (eGFR) Reference Intervals Decision Points for 18 years and older and average body mass: >=60 Does not exclude kidney disease. 30 - 59 Suggests moderate chronic kidney disease and indicates the need for further investigation including assessment of proteinuria and cardiovascular factors. < 30 Usually indicates a need for referral for assessment and management of chronic kidney failure. * Performing Lab Footnotes:* [address] [place] [address] - [id number] - [address] [place] [address] [address] - : DIRECTOR TUSHAR DONOVAN Order: PRO BNP B - NATRIURETIC PEPTIDE Specimen Source: BLOOD Body Site: LOINC Test Result Flag Range Unit Date 1Pro-BNP(B-Peptide) 1217 H 0-450 pg/ml 09/08/2018 18:14 Note: Result called to Erlinda Ramirez RN-ER read back * Performing Lab Footnotes:* [address] [place] [address] - [id number] - [facility] [place] [address] [place] - MD: DIRECTOR TUSHAR DONOVAN Vital Signs Vitals Value Date Pulse Rate 99 (beats)/min 09/08/2018 Respiratory Rate 19 (breaths)/min 09/08/2018 O2% BldC Oximetry 94 % 09/08/2018 BP Systolic 161 mmHg 09/08/2018 BP Diastolic 80 mmHg 09/08/2018 Body Temperature 98.3 F 09/08/2018 Height 66 in 09/08/2018 Weight Measured 149.91 lbs 09/08/2018 BSA (Body Surface Area) 1.34614 m2 09/08/2018 BMI (Body Mass Index) 24.3 kg/m2 09/08/2018 Advance Directives YES LIVING WILL Directive Type Effective Date Chicken Fancier Notes Supporting Document Name Address Phone No Directive Type specified 11/04/2012 21:27 Not Specified Not Specified Not Specified None No Patient does NOT have Living Will Directive Type Effective Date [employer] Fancier Notes Supporting Document Name Address Phone No Directive Type specified 04/07/2018 11:03 Not Specified Not Specified Not Specified None No Family History * No Data Reported Plan of Care * No data in the system Procedures * No data in the system Encounters Date Code Diagnosis Status (ICD10) - J441 COPD WITH ACUTE EXACERBATION Active Immunizations * No data in the system Functional Status * No data in the system Hospital Discharge Instructions * No data in the system
--- OUTSIDE RECORDS SUMMARY | 2018-12-19 18:28 | XMS REPORT ---
Author Author Trenton Tang Organization [employer] Address Unknown Phone Unavailable Care Team Providers Care Nuclear Criticality Safety Engineer Name Role Phone Trenton Tang CP Unavailable Allergies, Adverse Reactions, Alerts Substance Reaction Event Type N.K.D.A. 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 Assessment HAMMER (dyspnea on exertion) R06.09 Active Medications Medication Code System Code Instructions Start Date End Date Status Dosage Amlodipine Besylate [facility] 62534694733 10 MG Orally Once a day Active 1 tablet Trazodone HCl [facility] [address]-86 50 MG Orally at HS PRN Active 1-2 tablet Hydrocodone-Acetaminophen [facility] [address]-68 5-325 MG Orally ONCE A DAY Active 1 tablet as needed Zolpidem Tartrate [facility] 91824131008 10 MG Orally Once a day Active 1 tablet at bedtime as needed ProAir RespiClick [facility] 17017664840 108 (90 Base) MCG/ACT Inhalation every 6 hrs Jun 06, 2018 Active 2 puffs as needed Methotrexate [facility] [address]-32 2.5 MG Orally ONCE A WEEK Active 8 tabs Aleve ND 34999269742 220 MG Orally every 12 hrs Active 1 tablet with food or milk as needed Folic Acid ND 78398299129 1 MG Orally Once a day Active 1 tablet Hydrochlorothiazide [facility] [address]-10 12.5 MG Orally Once a day PRN Active 1 capsule [place] the [place] [address]-43 5 MG Orally ONCE A WEEK Active 1 tablet Symbicort [facility] 25641343058 160-4.5 MCG/ACT Inhalation Twice a day Active 2 puffs Etodolac NDC 77013395608 400 MG Orally Twice a day Active 1 tablet with food Benazepril HCl [facility] 86030546837 40 MG Orally Once a day Active 1 tablet Levalbuterol HCl [facility] [address]-03 0.63 MG/3ML Inhalation every 8 hrs PRN Active 3 ml Results No Known Results Summary Purpose [employer] Submission
--- OUTSIDE RECORDS SUMMARY | 2018-12-19 18:28 | XMS REPORT ---
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 Problem Rheumatoid arthritis involving multiple sites, unspecified rheumatoid factor presence M06.9 Active Problem Chronic respiratory failure with hypoxia J96.11 Active Assessment Acute and chronic respiratory failure with hypoxia J96.21 Active Assessment Acute and chronic respiratory failure with hypercapnia J96.22 Active Assessment COPD with acute exacerbation J44.1 Active Medications Medication Code System Code Instructions Start Date End Date Status Dosage Aleve ND 02274662269 220 MG Orally every 12 hrs Active 1 tablet with food or milk as needed Zolpidem Tartrate ND 21158657320 10 MG Orally Once a day Active 1 tablet at bedtime as needed Levalbuterol HCl ND 62931549529 0.63 MG/3ML Inhalation every 8 hrs PRN Active 3 ml Leucovorin Calcium ND 19886622776 5 MG Orally ONCE A WEEK Active 1 tablet Symbicort ND 04405836213 160-4.5 MCG/ACT Inhalation Twice a day Active 2 puffs Anoro Ellipta ND 72468333192 62.5-25 MCG/INH Inhalation Once a day Jun 20, 2018 Oct 18, 2018 Active 1 puff ProAir RespiClick [facility] 60685967724 108 (90 Base) MCG/ACT Inhalation every 6 hrs Active 2 puffs as needed Benazepril HCl ND 27517764730 40 MG Orally Once a day Active 1 tablet Folic Acid ND 08716443545 1 MG Orally Once a day Active 1 tablet Hydrocodone-Acetaminophen ND 85498440387 5-325 MG Orally ONCE A DAY Active 1 tablet as needed Methotrexate ND 83462234775 2.5 MG Orally ONCE A WEEK Active 8 tabs Amlodipine Besylate ND 26367950821 10 MG Orally Once a day Active 1 tablet Results No Known Results Summary Purpose [employer] Submission
--- OUTSIDE RECORDS SUMMARY | 2018-12-19 18:28 | XMS REPORT ---
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
--- OUTSIDE RECORDS SUMMARY | 2018-12-19 18:28 | XMS REPORT ---
Author Author Trenton Tang [facility] [employer] Address Unknown Phone Unavailable Care Team Providers Care Assistant Boiler Operator Name Role Phone Trenton Tang CP Unavailable [...] Instructions Start Date End Date Status Dosage Leucovorin Calcium ND 41835451002 5 MG Orally ONCE A WEEK Active 1 tablet Zolpidem Tartrate ND 40709004350 10 MG Orally Once a day Active 1 tablet at bedtime as needed ProAir RespiClick [facility] 41732953771 108 (90 Base) MCG/ACT Inhalation every 6 hrs Active 2 puffs as needed Amlodipine Besylate ND 86147428264 10 MG Orally Once a day Active 1 tablet Hydrocodone-Acetaminophen ND 03904859694 5-325 MG Orally ONCE A DAY Active 1 tablet as needed Symbicort ND 70563361251 160-4.5 MCG/ACT Inhalation Twice a day Active 2 puffs Methotrexate ND 72606626207 2.5 MG Orally ONCE A WEEK Active 8 tabs Benazepril HCl ND 95022169049 40 MG Orally Once a day Active 1 tablet Anoro Ellipta ND 30877045610 62.5-25 MCG/INH Inhalation Once a day Jun 20, 2018 Oct 18, 2018 Active 1 puff Aleve ND 07001982515 220 MG Orally every 12 hrs Active 1 tablet with food or milk as needed Folic Acid ND 57141611653 1 MG Orally Once a day Active 1 tablet Levalbuterol HCl ND 47393580458 0.63 MG/3ML Inhalation every 8 hrs PRN Active 3 ml Results No Known Results Summary Purpose [employer] Submission
--- OUTSIDE RECORDS SUMMARY | 2018-12-19 18:28 | XMS REPORT ---
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
--- OUTSIDE RECORDS SUMMARY | 2018-12-19 18:28 | XMS REPORT ---
Author Author Trenton Tang Organization [employer] Address Unknown Phone Unavailable Care Team Providers Care Netting Weaver Name Role Phone Trenton Tang CP Unavailable Allergies No Known Allergies Problems Problem Type Condition Code Onset Dates Condition Status Assessment Anxiety F41.9 Active Problem COPD with chronic bronchitis J44.9 [...] Instructions Start Date End Date Status Dosage Folic Acid [facility] 74534116654 1 MG Orally Once a day Active 1 tablet Amlodipine Besylate ND 60894066650 10 MG Orally Once a day Active 1 tablet Levalbuterol HCl [facility] 81171651624 0.63 MG/3ML Inhalation every 8 hrs PRN Active 3 ml Methotrexate ND 33133819949 2.5 MG Orally ONCE A WEEK Active 8 tabs Zolpidem Tartrate ND 88119202642 10 MG Orally Once a day Active 1 tablet at bedtime as needed Benazepril HCl ND 19577685539 40 MG Orally Once a day Active 1 tablet ProAir RespiClick [facility] 71589183615 108 (90 Base) MCG/ACT Inhalation every 6 hrs Active 2 puffs as needed Leucovorin Calcium ND 37809522164 5 MG Orally ONCE A WEEK Active 1 tablet Hydrocodone-Acetaminophen ND 11116369060 5-325 MG Orally ONCE A DAY Active 1 tablet as needed Symbicort ND 11095890740 160-4.5 MCG/ACT Inhalation Twice a day Active 2 puffs Aleve ND 62657370321 220 MG Orally every 12 hrs Active 1 tablet with food or milk as needed Anoro Ellipta ND 67110877096 62.5-25 MCG/INH Inhalation Once a day Jun 20, 2018 Oct 18, 2018 Active 1 puff Results No Known Results Summary Purpose [employer] Submission
--- OUTSIDE RECORDS SUMMARY | 2018-12-19 18:28 | XMS REPORT ---
Author Author Trenton Tang [facility] [employer] Address Unknown Phone Unavailable Care Team Providers Care New Vehicle Sales Consultant Name Role Phone Trenton Tang CP Unavailable [...] Date End Date Status Dosage Leucovorin Calcium [facility] 21325056624 5 MG Orally ONCE A WEEK Active 1 tablet Hydrocodone-Acetaminophen [facility] 90439760408 5-325 MG Orally ONCE A DAY Active 1 tablet as needed Anoro Ellipta ND 42707392661 62.5-25 MCG/INH Inhalation Once a day Jun 20, 2018 Oct 18, 2018 Active 1 puff ProAir RespiClick [facility] 90788704453 108 (90 Base) MCG/ACT Inhalation every 6 hrs Active 2 puffs as needed Benazepril HCl ND 47536402903 40 MG Orally Once a day Active 1 tablet Folic Acid [facility] 15277362494 1 MG Orally Once a day Active 1 tablet Levalbuterol HCl [facility] 95680532294 0.63 MG/3ML Inhalation every 8 hrs PRN Active 3 ml Zolpidem Tartrate ND 95007153732 10 MG Orally Once a day Active 1 tablet at bedtime as needed Aleve ND 54064195442 220 MG Orally every 12 hrs Active 1 tablet with food or milk as needed Symbicort ND 75887233732 160-4.5 MCG/ACT Inhalation Twice a day Active 2 puffs Amlodipine Besylate ND 49408270590 10 MG Orally Once a day Active 1 tablet Methotrexate ND 80529194555 2.5 MG Orally ONCE A WEEK Active 8 tabs Results No Known Results Summary Purpose [employer] Submission
--- OUTSIDE RECORDS SUMMARY | 2018-12-19 18:28 | XMS REPORT ---
Author Author Trenton Tang Organization [employer] Address Unknown Phone Unavailable Care Team Providers Care Waiter And Cashier Name Role Phone Trenton Tang CP Unavailable [...] Instructions Start Date End Date Status Dosage Methotrexate [facility] 85258640065 2.5 MG Orally ONCE A WEEK Active 8 tabs Folic Acid [facility] 49974322208 1 MG Orally Once a day Active 1 tablet Aleve ND 57564913679 220 MG Orally every 12 hrs Active 1 tablet with food or milk as needed Anoro Ellipta [facility] 29629342699 62.5-25 MCG/INH Inhalation Once a day Jun 20, 2018 Oct 18, 2018 Active 1 puff Amlodipine Besylate ND 57659519490 10 MG Orally Once a day Active 1 tablet Hydrocodone-Acetaminophen [facility] 01331339304 5-325 MG Orally ONCE A DAY Active 1 tablet as needed Leucovorin Calcium ND 19516743738 5 MG Orally ONCE A WEEK Active 1 tablet Zolpidem Tartrate ND 94033995458 10 MG Orally Once a day Active 1 tablet at bedtime as needed Symbicort ND 13676344324 160-4.5 MCG/ACT Inhalation Twice a day Active 2 puffs ProAir RespiClick [facility] 68942562218 108 (90 Base) MCG/ACT Inhalation every 6 hrs Active 2 puffs as needed Benazepril HCl ND 35857196694 40 MG Orally Once a day Active 1 tablet Levalbuterol HCl [facility] 13311718145 0.63 MG/3ML Inhalation every 8 hrs PRN Active 3 ml Results No Known Results Summary Purpose [employer] Submission
--- OUTSIDE RECORDS SUMMARY | 2018-12-19 18:28 | XMS REPORT | Continuity of Care Document ---
Author Author [facility] Organization [facility] Address [address] [place] [address] ;ext= Care Team Providers Care Lurer Name Role Phone DR AJIT RUSSELL Admkyung DR AJIT RUSSELL [facility] Admission Diagnosis Code Admission Diagnosis Date [id number] Dyspnea Social History Element Description Code Description Smoking Status Code System Start Date End Date Smoking Status 7687195 Former smoker SNOMED-CT Problems * No data in the system Medications SNOMED CT Description 576372106 Drug Treatment Unknown Allergies * No Allergy Data in the System Results Radiology Results Order: [id number] XR CHEST 2 PA LATERAL* Exam Completion Date:06/01/2018 14:15 PA and lateral chest:History: DyspneaCompared to May 01, 2011. The lungs a re hyperinflated and hyperlucent. Noinfiltrate or vascular congestion is noted. Cardiac size is within normallimits. Vascular calcification in the thoracic aort a is again noted. The bonythorax appears intact.Impression: Stable chest. Change s of emphysema with no acute abnormalityidentified.This final report was electro nically signed by Dr Ghassan Mccloud MD 06/01/20183:05 PMDictated By: LUIS MCCLOUD CHARKRISTALate: 06/01/2018 15:05 Vital Signs * No data in the system Advance Directives YES LIVING WILL Directive Type Effective Date Exhibit Carpenter Notes Supporting Document Name Address Phone No Directive Type specified 11/04/2012 21:27 Not Specified Not Specified Not Specified None No Patient does NOT have Living Will Directive Type Effective Date Exhibit Carpenter Notes Supporting Document Name Address Phone No Directive Type specified 04/07/2018 11:03 Not Specified Not Specified Not Specified None No Family History * No Data Reported Plan of Care * No data in the system Procedures Code Code System Procedure Name Target Site Date of Procedure XR CHEST 2 PA LATERAL 06/01/2018 15:12 Encounters Date Code Diagnosis Status (ICD10) - R0609 OTHER FORMS OF DYSPNEA Active Immunizations * No data in the system Functional Status * No data in the system Hospital Discharge Instructions * No data in the system
--- OUTSIDE RECORDS SUMMARY | 2018-12-19 18:28 | XMS REPORT ---
Author Author Trenton Tang Organization [employer] Address Unknown Phone Unavailable Care Team Providers Care Property Assessment Monitor Name Role Phone Trenton Tang CP Unavailable [...]
--- OUTSIDE RECORDS SUMMARY | 2018-12-19 18:28 | XMS REPORT ---
Author Author Trenton Tang Organization [employer] Address Unknown Phone Unavailable Care Team Providers Care Environmental Educator Name Role Phone Trenton Tang CP Unavailable Allergies, Adverse Reactions, Alerts Substance Reaction Event Type N.K.D.A. 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 Medications Medication Code System Code Instructions Start Date End Date Status Dosage Aleve [facility] 50471680684 220 MG Orally every 12 hrs Active 1 tablet with food or milk as needed Zolpidem Tartrate ND 43619936088 10 MG Orally Once a day Active 1 tablet at bedtime as needed Theophylline ER ND 30452472219 300 MG Orally every 12 hrs Active 0.5 tablet Ipratropium-Albuterol [facility] 42969363840 0.5-2.5 (3) MG/3ML Inhalation every 6 hrs Active 3 ml Trelegy Ellipta [facility] 19745123835 100-62.5-25 MCG/INH Inhalation Once a day Sep 26, 2018 January 24, 2019 Active 1 puff Hydrocodone-Acetaminophen [facility] 13710741612 5-325 MG Orally ONCE A DAY Active 1 tablet as needed Amlodipine Besylate ND 07774212714 10 MG Orally Once a day Active 1 tablet Benazepril HCl ND 33177630577 40 MG Orally Once a day Active 1 tablet ProAir RespiClick [facility] 02739151341 108 (90 Base) MCG/ACT Inhalation every 6 hrs Active 2 puffs as needed Methotrexate ND 10864670515 2.5 MG Orally ONCE A WEEK Active 8 tabs Linezolid ND 62003743419 600 MG Orally every 12 hrs Active 1 tablet Anoro Ellipta [facility] 48297683571 62.5-25 MCG/INH Inhalation Once a day Jun 20, 2018 Oct 18, 2018 Active 1 puff Trelegy Ellipta [facility] 09599775280 100-62.5-25 MCG/INH Inhalation Once a day Active 1 puff Leucovorin Calcium [facility] 47816271818 5 MG Orally ONCE A WEEK Active 1 tablet Levalbuterol HCl [facility] 88310578950 0.63 MG/3ML Inhalation every 8 hrs PRN Active 3 ml Folic Acid [facility] 73893926095 1 MG Orally Once a day Active 1 tablet Symbicort [facility] 04207699667 160-4.5 MCG/ACT Inhalation Twice a day Active 2 puffs Results No Known Results Summary Purpose [employer] Submission
--- OUTSIDE RECORDS SUMMARY | 2018-12-19 18:28 | XMS REPORT ---
Author Author Trenton Tang Organization [employer] Address Unknown Phone Unavailable Care Team Providers Care Gum Cook Name Role Phone Trenton Tang CP Unavailable [...] Date End Date Status Dosage Amlodipine Besylate ND 57865677617 10 MG Orally Once a day Active 1 tablet Aleve ND 71283759418 220 MG Orally every 12 hrs Active 1 tablet with food or milk as needed Folic Acid ND 98503189292 1 MG Orally Once a day Active 1 tablet Levalbuterol HCl ND 06144288016 0.63 MG/3ML Inhalation every 8 hrs PRN Active 3 ml Symbicort ND 50270896199 160-4.5 MCG/ACT Inhalation Twice a day Active 2 puffs ProAir RespiClick [facility] 00168890510 108 (90 Base) MCG/ACT Inhalation every 6 hrs Active 2 puffs as needed Anoro Ellipta [facility] 99107682801 62.5-25 MCG/INH Inhalation Once a day Jun 20, 2018 Oct 18, 2018 Active 1 puff Hydrocodone-Acetaminophen ND 02694188775 5-325 MG Orally ONCE A DAY Active 1 tablet as needed Benazepril HCl ND 87073430842 40 MG Orally Once a day Active 1 tablet Leucovorin Calcium ND 94361793147 5 MG Orally ONCE A WEEK Active 1 tablet Methotrexate ND 90303175134 2.5 MG Orally ONCE A WEEK Active 8 tabs Zolpidem Tartrate ND 60808412377 10 MG Orally Once a day Active 1 tablet at bedtime as needed Results No Known Results Summary Purpose [employer] Submission
--- OUTSIDE RECORDS SUMMARY | 2018-12-19 18:28 | XMS REPORT | Continuity of Care Document ---
Author Author [facility] Address [address] [place] [address] ;ext= Care Team Providers Care Brick Stacker Name Role Phone DR GE VALLES DR GE VALLES [facility] Admission Diagnosis Code Admission Diagnosis Date Acute exacerbation of chronic obstructive airways disease Social History Element Description Code Description Smoking Status Code System Start Date End Date Smoking Status [id number] Former smoker SNOMED-CT Problems Code Code System Problem Name Start Date End Date Status 565173450 SNOMED-CT Acute exacerbation of chronic obstructive airways disease 09/08/2018 Active Medications RxNorm Medication Dose Route Instructions Indications Start Date End Date Status 6201990 Albuterol 0.833 MG/ML / Ipratropium Mckenna 0.167 MG/ML Inhalant Solution 3 milliliter Inhalation inhaled every 4 to 6 hours as needed. (as needed for wheezing) wheezing Active Allergies * No Known Allergies Results Radiology Results Order: [id number] XR CHEST 2 PA LATERAL* Exam Completion Date:09/08/2018 13:29 PA and lateral chest:Exam Date: 09/08/2018History: COPD, wheezingCompared to Oc tober 2017. The lungs are again hyperinflated but appearclear. Cardiac size is within normal limits. Mild atherosclerotic calcificationin the aortic arch is again noted. There are no significant bony abnormalities.Impression: Stable roberto st. Hyperinflation with no acute cardiopulmonaryabnormalities identified.This fi nal report was electronically signed by Dr Monica Mccloud MD 09/08/20181:59 PMDi ctated By: MONICA MCCLOUDDate: 09/08/2018 13:59 Vital Signs * No data in the system Advance Directives YES LIVING WILL Directive Type Effective Date Repair Electric Motor Assembler Notes Supporting Document Name Address Phone No Directive Type specified 11/04/2012 21:27 Not Specified Not Specified Not Specified None No Patient does NOT have Living Will Directive Type Effective Date Repair Electric Motor Assembler Notes Supporting Document Name Address Phone No Directive Type specified 04/07/2018 11:03 Not Specified Not Specified Not Specified None No Family History * No Data Reported Plan of Care * No data in the system Procedures Code Code System Procedure Name Target Site Date of Procedure XR CHEST 2 PA LATERAL 09/08/2018 14:05 Encounters Date Code Diagnosis Status (ICD10) - J441 COPD WITH ACUTE EXACERBATION Active Immunizations * No data in the system Functional Status * No data in the system Hospital Discharge Instructions * No data in the system
--- OUTSIDE RECORDS SUMMARY | 2018-12-19 18:28 | XMS REPORT | Continuity of Care Document ---
Author Author [facility] Address [address] [place] [address] ;ext= Care Team Providers Care Drama Critic Name Role Phone SAM JACOBSON Admkyung KAVONSAM GAXI[facility]A [facility] Admission Diagnosis Code Admission Diagnosis Date [id number] Chronic obstructive lung disease Social History Element Description Code Description Smoking Status Code System Start Date End Date Smoking Status 0850822 Former smoker SNOMED-CT Problems * No data in the system Medications SNOMED CT Description 440298803 Drug Treatment Unknown Allergies * No Allergy Data in the System Results Laboratory Results Order: BUN Specimen Source: BLOOD Body Site: LOINC Test Result Flag Range Unit Date 1BUN 12 6.0-17.0 mg/dl 06/13/2018 13:04 * Performing Lab Footnotes:* [address] [place] [address] - [id number] [facility] [address] [place] [address] ARLEN Walden MD: DIRECTOR TUSHAR DONOVAN Order: CREATININE SERUM Specimen Source: BLOOD Body Site: LOINC Test Result Flag Range Unit Date 1Creatinine 0.8 0.4-1.2 mg/dl 06/13/2018 13:04 1EGFR if >60 mL/min/1.73m^2 06/13/2018 13:04 1EGFR if Non- >60 mL/min/1.73m^2 06/13/2018 13:04 Note: Estimated Glomerular Filtration Rate (eGFR) Reference [...] chronic kidney failure. * Performing Lab Footnotes:* [address] [place] [address] - [id number] - [address] [facility] [address] - MD: DIRECTOR TUSHAR DONOVAN Radiology Results Order: [id number] CT ANGIO CHEST W/WO or W/ CONT* Exam Completion Date:06/13/2018 13:00 CTA chest:History: COPDCT angiography of the chest was performed using multidete ctor helical imagingfollowing bolus intravenous injection of 100 mL of Isovue-37 0. Imagepostprocessing was performed on the same workstation yielding coronal 3- D MIPimages and sagittal reconstructions. Dose reduction technique [...] no acute abnormality. The bony thorax is intact.Impression: No p ulmonary embolus or acute vascular abnormality is identified.Atherosclerosis and changes of emphysema are noted.This final report was electronically signed by Dr Ghassan Marte MD 06/13/20183:23 PMDictated By: Johnnie MARTEte: 2017 15:23 Vital Signs * No data in the system Advance Directives YES LIVING WILL Directive Type Effective Date Front Office Manager Notes Supporting Document Name Address Phone No Directive Type specified 11/04/2012 21:27 Not Specified Not Specified Not Specified None No Patient does NOT have Living Will Directive Type Effective Date Front Office Manager Notes Supporting Document Name Address Phone No Directive Type specified 04/07/2018 11:03 Not Specified Not Specified Not Specified None No Family History * No Data Reported Plan of Care * No data in the system Procedures Code Code System Procedure Name Target Site Date of Procedure CT ANGIO CHEST W/WO or W/ CONT 06/13/2018 15:29 Encounters Date Code Diagnosis Status (ICD10) - J449 COPD UNSPECIFIED Active Immunizations * No data in the system Functional Status * No data in the system Hospital Discharge Instructions * No data in the system
--- OUTSIDE RECORDS SUMMARY | 2018-12-19 18:28 | XMS REPORT ---
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 Medications Medication Code System Code Instructions Start Date End Date Status Dosage Hydrochlorothiazide [facility] [address]-96 12.5 MG Orally Once a day PRN Active 1 capsule in the morning Folic Acid [facility] 04748110141 1 MG Orally Once a day Active 1 tablet Trazodone HCl [facility] [address]-74 50 MG Orally at HS PRN Active 1-2 tablet Zolpidem Tartrate [facility] 79330383981 10 MG Orally Once a day Active 1 tablet at bedtime as needed Benazepril HCl [facility] 30110727972 40 MG Orally Once a day Active 1 tablet Etodolac [facility] 94692799181 400 MG Orally Twice a day Active 1 tablet with food Leucovorin Calcium [facility] [address]-46 5 MG Orally ONCE A WEEK Active 1 tablet Levalbuterol HCl [facility] [address]-39 0.63 MG/3ML Inhalation every 8 hrs PRN Active 3 ml Methotrexate [facility] [address]-84 2.5 MG Orally ONCE A WEEK Active 6 tabs Symbicort [facility] 48795058125 160-4.5 MCG/ACT Inhalation Twice a day Active 2 puffs Amlodipine Besylate ND 99531089856 10 MG Orally Once a day Active 1 tablet Hydrocodone-Acetaminophen [facility] [address]-16 5-325 MG Orally ONCE A DAY Active 1 tablet as needed Results No Known Results Summary Purpose eClinicalWorks Submission
--- OUTSIDE RECORDS SUMMARY | 2018-12-19 18:28 | XMS REPORT | Continuity of Care Document ---
Author Author [facility] Organization [facility] Address [address] [place] [address] ;ext= Care Team Providers Care Ice Cream Vendor Name Role Phone CARA BEARD [facility] Admission Diagnosis * No data in the System Social History Element Description Code Description Smoking Status Code System Start Date End Date Smoking Status 047085360 Never smoker SNOMED-CT Problems * No data in the system Medications SNOMED CT Description 962360713 Drug Treatment Unknown Allergies * No Allergy Data in the System Results * No data in the system Vital Signs * No data in the system Advance Directives Patient does NOT have Living Will Directive Type Effective Date Datastage Architect Notes Supporting Document Name Address Phone No Directive Type specified 09/11/2018 14:15 Not Specified Not Specified Not Specified None No Family History * No Data Reported Plan of Care * No data in the system Procedures * No data in the system Encounters * No data in the system Immunizations * No data in the system Functional Status * No data in the system Hospital Discharge Instructions * No data in the system
[2018-12-19] MEDS ORDERED: AMLODIPINE BESY10 MG PO (18:45)
[2018-12-19] MEDS ORDERED: IPRAT-ALBUT 0.5-3 ML INH (18:45)
[2018-12-19] MEDS ORDERED: TRELEGY INH (18:45)
[2018-12-19] MEDS ORDERED: PREDNISONE10 MG PO (18:45)
[2018-12-19] MEDS ORDERED: TRAZODONE HCL50 MG PO (18:45)
[2018-12-19] MEDS ORDERED: FOLIC ACID1 MG PO (18:45)
[2018-12-19] MEDS ORDERED: METHOTREXATE2.5 MG PO (18:45)
[2018-12-19] MEDS ORDERED: BENAZEPRIL HCL40 MG PO (18:45)
[2018-12-19] MEDS: LEVALBUTEROL HCL SOLN NEBU 1.25 MG/3 ML NEB INH SCH ×2 (19:00→23:00)
[2018-12-19] MEDS: CEFTRIAXONE SOD 1 GM/NS 50 ML 50 ML IV SCH (19:44)
[2018-12-19] MEDS: OSELTAMIVIR PHOSPHATE 75 MG CAP PO SCH (19:45)
--- NOTE | 2018-12-19 21:20 | NUR ---
Transferred from ER via stretcher. SOB noted, 02 sat 100% 2L NC, encourage to take slow deep breaths in nose out mouth. Patient in tripod position. Will continue to monitor.
[2018-12-19 21:36] VITALS: BP 134/98
[2018-12-19 21:45] VITALS: BP 134/98
[2018-12-19] MEDS: AZITHROMYCIN 250MG/NS 100 ML 100 ML IV SCH (22:00)
[2018-12-19] MEDS: METHYLPREDNISOLONE SOD SUCC 125 MG/2ML VIAL IV SCH (22:00)
[2018-12-19] MEDS ORDERED: QUILL PO (23:26)
--- NOTE | 2018-12-19 23:40 | NUR ---
Spoke with Dr Gunn. Patient requesting medication for cough./ New order Tessalon perles 100mg po TID PRN and Robitussin with codiene 10 cc po Q 4 hrs PRN cough.
[2018-12-20] VITALS (9 sets, daily range): BP systolic 119–164; BP diastolic 51–79
[2018-12-20] MEDS ORDERED: BENZONATATE 100 MG CAP PO PRN (00:30)
[2018-12-20] MEDS: GUAIFENESIN/CODEINE 10 ML CUP PO PRN ×2 (00:31→04:30)
[2018-12-20 01:17] LABS: CREATINE KINASE MB 3.2 ng/mL (0-5.0)
[2018-12-20] MEDS: LEVALBUTEROL HCL SOLN NEBU 1.25 MG/3 ML NEB INH SCH ×6 (04:00→23:24)
[2018-12-20 05:31] LABS: BASOPHILS % 0.2 % (0.0-1.0); EOSINOPHILS # (AUTO) 0.1 (0.0-0.4); EOSINOPHILS % 0.6 % (0.0-6.0); HEMATOCRIT 33.6 % (34.2-44.1); HEMOGLOBIN 10.7 g/dL (12.0-16.0); LYMPHOCYTES # (AUTO) 1.2 (1.0-3.2); LYMPHOCYTES % 6.7 % (18.0-39.1); MEAN CORPUSCULAR HEMOGLOBIN 27.3 pg (28-32); MEAN CORPUSCULAR HGB CONC 31.8 g/dL (31-35); MEAN CORPUSCULAR VOLUME 85.7 fL (81-99); MONOCYTES # (AUTO) 0.3 (0.2-0.8); MONOCYTES % 1.6 % (4.4-11.3); NEUTROPHILS # (AUTO) 16.5 (2.1-6.9); NEUTROPHILS % 89.9 % (38.7-80.0); PLATELET COUNT 364 x10e3/uL (140-360); RED BLOOD COUNT 3.92 x10e6/uL (3.6-5.1); RED CELL DISTRIBUTION WIDTH 13.7 % (11.7-14.4)
[2018-12-20 05:49] LABS: ANION GAP 13.7 mmol/L (8-16); BLOOD UREA NITROGEN 13 mg/dL (7-26); BUN/CREATININE RATIO 17 (6-25); CALCIUM 9.1 mg/dL (8.4-10.2); CARBON DIOXIDE 23 mmol/L (22-29); CHLORIDE 106 mmol/L (98-107); CREATININE, SERUM 0.78 mg/dL (0.57-1.11); EST GLOMERULAR FILTRATION RATE > 60 ML/MIN (60-); GLUCOSE 169 mg/dL (74-118); POTASSIUM 3.7 mmol/L (3.5-5.1); SODIUM 139 mmol/L (136-145)
[2018-12-20] MEDS: METHYLPREDNISOLONE SOD SUCC 125 MG/2ML VIAL IV SCH ×3 (06:17→21:46)
[2018-12-20] MEDS: CEFTRIAXONE SOD 1 GM/NS 50 ML 50 ML IV SCH ×2 (06:17→18:27)
[2018-12-20 07:11] LABS: HYPOCHROMASIA MODERATE; LYMPHOCYTES % (MANUAL) 5 % (19-48); MONOCYTES % (MANUAL) 1 % (3.4-9.0); NEUTROPHILS % (MANUAL) 93 % (40-74)
[2018-12-20 07:12] LABS: ANISOCYTOSIS SLIGHT; PLATELET ESTIMATE ADEQUATE; PLATELET MORPHOLOGY COMMENT NORMAL; RBC MORPHOLOGY COMMENT NORMAL
[2018-12-20] MEDS ORDERED: METHOTREXATE SOD 2.5 MG TAB PO SCH ×2 (08:45→15:30)
[2018-12-20] MEDS: FOLIC ACID 1 MG TAB PO SCH (09:00)
[2018-12-20] MEDS ORDERED: NON-FORMULARY MEDICATION (Benazepril Hcl 40 MG) PO SCH (09:00)
[2018-12-20] MEDS ORDERED: DEXTROSE 50% SYRINGE 50 ML IV PRN (09:00)
[2018-12-20] MEDS: OSELTAMIVIR PHOSPHATE 75 MG CAP PO SCH ×2 (09:00→17:00)
[2018-12-20] MEDS ORDERED: NON-FORMULARY MEDICATION ([Trelegy] 1 INH) INH SCH (09:00)
[2018-12-20] MEDS: AMLODIPINE BESYLATE 10 MG TAB PO SCH (09:00)
[2018-12-20] MEDS: AZITHROMYCIN 250MG/NS 100 ML 100 ML IV SCH (09:00)
[2018-12-20 09:21] LABS: CREATINE KINASE MB 3.6 ng/mL (0-5.0)
[2018-12-20] MEDS: BENAZEPRIL HCL 10 MG TAB PO SCH (10:00)
--- NOTE | 2018-12-20 12:10 | History and Physical ---
CHIEF COMPLAINT: Cough, congestion, shortness of breath. HISTORY OF PRESENT ILLNESS: This is a 78-year-old female, who lives in a [place], [place], who was recently admitted in the hospital with similar findings of shortness of breath three weeks ago, was discharged, now presents to the ED with complaints of cough, congestion, shortness of breath for the last several days. While here, the patient was found to have influenza B positive. Does endorse smoking for more than 60+ years. She reports she is currently not smoking at this time. She is on home O2 as well. Denies any chest pain, palpitation, nausea, vomiting, or any other complaints. The patient was seen and evaluated at bedside in the [facility]. She is currently very stable with no other issues at this time. REVIEW OF SYSTEMS: Pertinent positives: Cough, congestion, and shortness of breath. Pertinent negatives: Denies any chest pain, palpitation, nausea, vomiting, diarrhea, dysuria, hematuria, frequency, urgency, lightheadedness, dizziness, abdominal pain, headaches, or fever. The rest of 14-point review of systems have been reviewed with the patient and are negative. ALLERGIES: NO KNOWN DRUG ALLERGIES. HOME MEDICATIONS: Amlodipine 10 mg daily, folic acid 1 mg daily. Takes neb treatments, DuoNebs at home. Methotrexate 2.5 mg eight tablets every 7 days on Tuesday. Prednisone 10 mg daily, trazodone 50 mg at bedtime for sleep, benazepril 40 mg daily, and insulin at home. PAST MEDICAL HISTORY: She has rheumatoid arthritis, hypertension, type 2 diabetes, COPD. PAST SURGICAL HISTORY: Reports none. FAMILY HISTORY: Hypertension and diabetes. SOCIAL HISTORY: No drugs. No alcohol. Former smoker 60+ years, she quit four years ago. PHYSICAL EXAMINATION: VITAL SIGNS: Temperature is 98.2, pulse 78, respiratory rate is 18, blood pressure 123/60, pulse ox is 94%, she is on 2 L nasal cannula. GENERAL: Not in acute distress. Alert and oriented x3. Cooperative on examination. HEENT: Head is normocephalic and atraumatic. Eyes; pupils are equal, round, and reactive to light bilaterally. Extraocular movements are intact bilaterally. Throat, no evidence of erythema or exudates in the posterior pharynx. Has poor dentition. NECK: Supple. Good range of motion. PULMONARY: Has expiratory wheezing appreciated with decreased inspiratory effort. No crackles appreciated. No rhonchi. CARDIOVASCULAR: Positive S1, S2. No murmurs, rubs, or gallops appreciated. ABDOMEN: Soft, nondistended, and nontender to palpation. Bowel sounds present. MUSCULOSKELETAL: Strength is 5/5 throughout. No evidence of any muscle deficits on examination. No weakness appreciated. NEUROLOGICAL: Cranial nerves 2 through 12 grossly intact. No evidence of any neurological deficits on exam. SKIN: Intact. Warm to touch. Good cap refill. PSYCHIATRIC: Normal affect and mood. EXTREMITIES: No edema. Good range of motion throughout. LABORATORY DATA: Lab findings show white count on admission was 25, now 18.3; hemoglobin 10.7; hematocrit 33.6; platelets of 364. Coagulation; PT 13, INR 0.98. Chemistry; sodium 139, potassium 3.7, chloride 103, bicarb 23, anion gap of 13, BUN is 13, creatinine is 0.78, glucose is 169. Lactic acid is 15, normal at this hospital. Calcium 9.1. Troponins were negative. BNP 174. Albumin was 3. LFTs were normal. Magnesium is 1.8. Serology, group B positive. MICROBIOLOGY: Blood cultures are pending. IMAGING STUDIES: Chest x-ray was negative. CT chest shows no pulmonary embolism. Pulmonary edema. in the right lower lung may be related to infectious or aspiration. IMPRESSION: 1. Acute exacerbation of chronic obstructive pulmonary disease. 2. Influenza B positive. 3. Hypertension. 4. Type 2 diabetes. 5. Rheumatoid arthritis. PLAN: At this time, the patient will be on steroids, neb treatments, antibiotics. Blood cultures are pending. In relation to her flu, she is currently on Tamiflu as well for additional five more days. Resume same antihypertensive medications, p.r.n. hydralazine for elevated blood pressure. Insulin sliding scale, Accu-Cheks, A1c. Resume her rheumatoid arthritis medications. Put on Lovenox for DVT prophylaxis. The patient is already on home O2 around 2 L already. Get a.m. labs. MD ERICA Lopez/MODL /[id number]
[2018-12-20] MEDS: ENOXAPARIN SOD INJ 40 MG/0.4 ML SYR SC SCH (17:00)
[2018-12-20 18:41] LABS: CREATINE KINASE MB 5.2 ng/mL (0-5.0)
[2018-12-20] MEDS ORDERED: METHOTREXATE SOD 2.5 MG TAB PO ONE (18:45)
[2018-12-20] MEDS: TRAZODONE HCL 50 MG TAB PO SCH (21:46)
[2018-12-21] VITALS (7 sets, daily range): BP systolic 117–142; BP diastolic 55–81
[2018-12-21] MEDS: LEVALBUTEROL HCL SOLN NEBU 1.25 MG/3 ML NEB INH SCH ×6 (03:15→23:02)
--- NOTE | 2018-12-21 03:37 | NUR ---
Report received from AM SAVANAH Arzate. Patient received eating food sitting on edge of the bed. Denied pain and no SOB. Respiration even and unlabored,continued on 2liters oxygen nasal canula. Patient's daughter in the room. Patient instructed to call for help as needed, verbalized understand. Bed in lower position,locked. Call stanton within reach.
[2018-12-21 05:42] LABS: BASOPHILS # (AUTO) 0.1 (0.0-0.1); BASOPHILS % 0.2 % (0.0-1.0); EOSINOPHILS # (AUTO) 0.1 (0.0-0.4); EOSINOPHILS % 0.2 % (0.0-6.0); HEMATOCRIT 32.5 % (34.2-44.1); HEMOGLOBIN 10.1 g/dL (12.0-16.0); LYMPHOCYTES # (AUTO) 1.7 (1.0-3.2); LYMPHOCYTES % 6.9 % (18.0-39.1); MEAN CORPUSCULAR HEMOGLOBIN 27.2 pg (28-32); MEAN CORPUSCULAR HGB CONC 31.1 g/dL (31-35); MEAN CORPUSCULAR VOLUME 87.6 fL (81-99); MONOCYTES # (AUTO) 0.8 (0.2-0.8); MONOCYTES % 3.1 % (4.4-11.3); NEUTROPHILS # (AUTO) 21.6 (2.1-6.9); NEUTROPHILS % 88.3 % (38.7-80.0); PLATELET COUNT 335 x10e3/uL (140-360); RED BLOOD COUNT 3.71 x10e6/uL (3.6-5.1); RED CELL DISTRIBUTION WIDTH 13.6 % (11.7-14.4)
[2018-12-21 06:08] LABS: ANION GAP 12.1 mmol/L (8-16); BLOOD UREA NITROGEN 16 mg/dL (7-26); BUN/CREATININE RATIO 21 (6-25); CARBON DIOXIDE 25 mmol/L (22-29); CHLORIDE 106 mmol/L (98-107); CREATININE, SERUM 0.77 mg/dL (0.57-1.11); EST GLOMERULAR FILTRATION RATE > 60 ML/MIN (60-); GLUCOSE 154 mg/dL (74-118); POTASSIUM 4.1 mmol/L (3.5-5.1); SODIUM 139 mmol/L (136-145)
[2018-12-21] MEDS: METHYLPREDNISOLONE SOD SUCC 125 MG/2ML VIAL IV SCH ×3 (06:22→21:15)
[2018-12-21] MEDS: CEFTRIAXONE SOD 1 GM/NS 50 ML 50 ML IV SCH (06:23)
[2018-12-21] MEDS: FOLIC ACID 1 MG TAB PO SCH (07:21)
--- NOTE | 2018-12-21 07:21 | NUR ---
patient very particular about med times. will let her adjust home meds to her desire for a more pleasant stay.
[2018-12-21 08:35] LABS: HYPOCHROMASIA SLIGHT; LYMPHOCYTES % (MANUAL) 1 % (19-48); MONOCYTES % (MANUAL) 2 % (3.4-9.0); NEUTROPHILS % (MANUAL) 95 % (40-74); PLATELET ESTIMATE ADEQUATE; PLATELET MORPHOLOGY COMMENT NORMAL; RBC MORPHOLOGY COMMENT NORMAL
[2018-12-21] MEDS: OSELTAMIVIR PHOSPHATE 75 MG CAP PO SCH ×2 (08:55→16:38)
[2018-12-21] MEDS: BENAZEPRIL HCL 10 MG TAB PO SCH (08:55)
[2018-12-21] MEDS: NON-FORMULARY MEDICATION ([Trelegy] 1 INH) INH SCH (08:55)
[2018-12-21] MEDS: AMLODIPINE BESYLATE 10 MG TAB PO SCH (08:55)
[2018-12-21] MEDS: CEFEPIME 1GM/NS 0.9% 50 ML 50 ML IV SCH ×2 (12:20→23:56)
[2018-12-21] MEDS: AZITHROMYCIN 250MG/NS 100 ML 100 ML IV SCH (12:20)
--- NOTE | 2018-12-21 12:46 | Progress Note ---
DATE: 12/21/2018 Medicine Progress Note SUBJECTIVE: The patient is stating now feeling well today. She still reports having some shortness of breath on examination. We will go ahead and get Pulmonary consultation as well as the patient is on methotrexate and could be having some interstitial lung issues from methotrexate. She has been afebrile. Vital signs stable. She reports eating, but not much. The patient is on home O2 as well, recently started. OBJECTIVE: VITAL SIGNS: Temperature 97.9, pulse 85, respiratory rate is 22, blood pressure 141/81, pulse ox 100%. She is on 2 L nasal cannula. GENERAL: Not in acute distress. Alert and oriented x3. Cooperative on examination. HEENT: Head is normocephalic and atraumatic. Eyes; pupils are equal, round, and reactive to light bilaterally. Extraocular movements are intact bilaterally. Throat, no evidence of any erythema or exudates in the posterior pharynx. Has poor dentition. NECK: Supple. Good range of motion. PULMONARY: Clear to auscultation bilaterally. No rales, no rhonchi. The patient has some expiratory wheezing appreciated on examination, has mild fine crackles. CARDIOVASCULAR: Positive S1, S2. No murmurs, rubs, or gallops appreciated. GI: Abdomen is soft, nondistended, and nontender to palpation. Bowel sounds present. MUSCULOSKELETAL: Strength is 5/5 throughout. No evidence of any muscle deficits on examination. No weakness appreciated. NEUROLOGICAL: Cranial nerves 2 through 12 grossly intact. No evidence of any neurological deficits on exam. SKIN: Intact. Warm to touch. Good cap refill. PSYCHIATRIC: Normal affect and mood. EXTREMITIES: No edema. Good range of motion throughout. LABORATORY FINDINGS: Show white count now is 24, hemoglobin 10, hematocrit is 32, and platelets of 335. Coagulation, none. Chemistry; sodium 139, potassium 4.1, chloride 103, bicarb 25, anion gap of 12, BUN 16, creatinine is 0.77, glucose is 154, calcium is 9. Flu B positive. MICROBIOLOGY: Blood cultures, no growth. IMAGING STUDIES: None. IMPRESSION: 1. Acute exacerbation of chronic obstructive pulmonary disease. 2. Influenza B positive. 3. Hypertension. 4. Type 2 diabetes. 5. Rheumatoid arthritis concerning for possible interstitial lung disease from methotrexate. PLAN: At this time, continue with steroids, neb treatments, antibiotics. Blood cultures were negative. She will continue with Tamiflu for underlying flu. We will consult Pulmonary to help and assist in this particular case. The patient is on home O2, 2 L already. She is on Lovenox for DVT prophylaxis. Encourage PT, OT. Insulin sliding scale for diabetes. Get a.m. labs. MD ERICA Lopez/MARSHALL /[id number]
[2018-12-21] MEDS: VANCOMYCIN 1GM/NS 250 ML 250 ML IV SCH (15:05)
[2018-12-21] MEDS: ENOXAPARIN SOD INJ 40 MG/0.4 ML SYR SC SCH (16:38)
--- NOTE | 2018-12-21 17:33 | Consultation ---
DATE OF CONSULTATION: 12/21/2018 Pulmonary Consultation HISTORY OF PRESENT ILLNESS: Ms. Reed is a 78-year-old woman with past medical history of emphysema and rheumatoid arthritis, who apparently was treated in the hospital in [place], hospitalized for about 8 days, but had continued shortness of breath. She does not know her diagnosis, but she was given antibiotics and breathing treatments here. She presents with cough and shortness of breath. She denies fevers, chills, or night sweats. She has dyspnea with exertion. She uses oxygen at home and Trilogy at home. PAST MEDICAL HISTORY: Notable for rheumatoid arthritis for which she is taking methotrexate 20 mg a week. She is getting some infusion and taking Prednisone. Hypertension, diabetes, emphysema, and chronic hypoxemic respiratory failure. PAST SURGICAL HISTORY: None. SOCIAL HISTORY: She smoked two packs a day, quit about 10 years ago, but she smoked for over 60 years. No drugs. No alcohol. She is , her is disabled secondary to stroke. ALLERGIES: NONE. PHYSICAL EXAMINATION: VITAL SIGNS: She is afebrile, heart rate is in the 80s, respiratory rate is 18 to 22, she is 100% saturation but currently getting neb treatment, blood pressure 141/81. GENERAL APPEARANCE: An elderly woman, looks her stated age, not in distress. HEENT: Normocephalic, atraumatic. Pupils are round and reactive. Mucous membranes are moist. NECK: Supple. Trachea is midline. CHEST: Barrel shaped. She is thin. There are qualitatively decreased breath sounds. HEART: Regular rate and rhythm. ABDOMEN: Soft. EXTREMITIES: There is no cyanosis, clubbing, or edema. The patient does have marked rheumatologic changes of the hands. LABORATORY DATA: White count is 24.5 thousand today, hemoglobin and hematocrit of 10 and 32 with 335,000 platelets and a left shift. Serology is positive for influenza B. Coags are normal. Chemistry is not particularly remarkable because it was 154 most recently. Blood cultures are negative so far. They said there is a sputum culture pending. IMAGING: Chest x-ray was done and showed COPD changes. Some prominence of the interstitium, which I think more related to the Bullous disease. She also had a CT of the chest done, which I have reviewed showed marked emphysematous changes with questionable . Radiology is describing tree-in-bud in the right base. There are no filling defects to suggest PE. There were no pleural effusions. ASSESSMENT: 1. Chronic obstructive pulmonary disease/emphysema with acute exacerbation. 2. Questionable right lower lobe pneumonitis. 3. Influenza B infection. 4. Leukocytosis. 5. Immunocompromised host. 6. Rheumatoid arthritis. 7. History of nicotine dependence for cigarettes, complicated by emphysema. RECOMMENDATIONS AND PLAN: I will lower the steroids, but they will be continued. I will broaden the antibiotics and she was hospitalized for 8 days and could have nosocomial pathogens. She can continue her Trilogy and her azithromycin and her DVT prophylaxis. Continue with activity and isolation. She may benefit from an Infectious Disease consultation if her white blood cell count is not significantly improved post change in antibiotics. MD MARK Caraballo/MODL /[id number]
--- NOTE | 2018-12-21 19:00 | NUR ---
Received patient from day nurse, patient stable, patient received all due medications, patient iv access was infiltrated on assessment and new iv was placed in left ac 20g.
[2018-12-21] MEDS: TRAZODONE HCL 50 MG TAB PO SCH (21:15)
--- NOTE | 2018-12-21 21:25 | History and Physical ---
REASON FOR CONSULTATION: 1. Leukocytosis. 2. Pneumonia, recommendation antibiotic. HISTORY OF PRESENT ILLNESS: Ms. Derek Hardin is a 78-year-old white female, who lives in [place], [place]. She recently was admitted a month ago at [facility]. She was there for eight days. She apparently had pneumonia. The patient who has been getting progressively worse and apparently she was diagnosed with pneumonia and she was discharged home after eight days with some oral antibiotic and some oxygen. The patient also has history of severe rheumatoid arthritis, and she comes to [place] today for steroid injection. She is also on methotrexate. The patient came here to [place] to get her steroid injection. She went home, but she felt really bad, short of breath, cough, so she came back to the emergency room in this facility, where she was admitted. She was found to have influenza B. She started antibiotic, but it is also noted that she has high white count, so I am asked to see her. The patient is quite short of breath at the present time, but she is telling me that her shortness of breath has been getting progressively worse over the last few months. She is having some cough and rhonchi, but the cough is weak, except some sputum. She said it is whitish. PAST MEDICAL HISTORY: COPD, congestive heart failure, rheumatoid arthritis, hypertension, and diabetes mellitus type 2. PAST SURGICAL HISTORY: She denies. ALLERGIES: NKA. SOCIAL HISTORY: She smoked 60+ a year, but she quit four years ago. FAMILY HISTORY: Hypertension. REVIEW OF SYSTEMS: Shortness of breath, cough, feeling bad, congestion, arthritic pain. Other than that, the remaining review of the system is unremarkable. HEENT: There is no visual change or hearing changes. GASTROINTESTINAL: There is no nausea. No vomiting. No diarrhea. CARDIAC: There is no chest pain or arrhythmia at present time. GENITOURINARY: There is no urgency or frequency. SKIN: There is no other rash. MEDICATION LIST: She is currently on: 1. Cefepime. 2. Azithromycin. 3. Xopenex. 4. Lotensin. 5. Norvasc. 6. Tamiflu. 7. Folic acid. 8. Lovenox. 9. Methylprednisolone. Her medication list reviewed as mentioned above. PHYSICAL EXAMINATION: GENERAL: She is alert, does not seem to be in acute distress. The patient does look short of breath. VITAL SIGNS: Stable, currently afebrile. HEENT: Normocephalic. Not icteric. NECK: Supple. CHEST: Few rhonchi bilateral. HEART: S1 and S2. No S3, S4, or murmur. ABDOMEN: Soft. Bowel sounds present. No tenderness. EXTREMITIES: No edema. LABORATORY DATA: Her laboratory data reviewed. White count is 25.36 on admission, came down to , and now up to 24.5; hemoglobin of 10; hematocrit 32; and platelet of 335. Her sodium 139, potassium 4.1, creatinine 0.77, and glucose 154. Her blood cultures are negative. Her influenza B was positive. IMAGING DATA: CAT scan of the chest reviewed no pulmonary embolism, but there is pulmonary edema. There are scattered nodules in the right lower lung. IMPRESSION: 1. Leukocytosis. I think is due to steroid that she has been getting. She just received another dose of steroid before she came here, now she is currently on steroid. 2. Pneumonia with influenza. The patient is on Tamiflu plan of seven days, concerned about superimposed infection. She is currently on cefepime and azithromycin. We will add vancomycin. 3. Rheumatoid arthritis. 4. Severe chronic obstructive pulmonary disease. 5. Debility. 6. We will follow with you. Discussed with the patient. Discussed with Internal Medicine. Time spent 60 minutes. MD RAHUL Ramsey/MARSHALL /[id number]
[2018-12-22] VITALS (7 sets, daily range): BP systolic 112–169; BP diastolic 56–78
[2018-12-22] MEDS: LEVALBUTEROL HCL SOLN NEBU 1.25 MG/3 ML NEB INH SCH ×6 (03:25→23:48)
[2018-12-22] MEDS: VANCOMYCIN 1GM/NS 250 ML 250 ML IV SCH ×2 (04:21→19:25)
[2018-12-22 05:26] LABS: BASOPHILS % 0.2 % (0.0-1.0); HEMATOCRIT 34.1 % (34.2-44.1); HEMOGLOBIN 10.7 g/dL (12.0-16.0); MEAN CORPUSCULAR HEMOGLOBIN 27.3 pg (28-32); MEAN CORPUSCULAR HGB CONC 31.4 g/dL (31-35); MONOCYTES # (AUTO) 0.5 (0.2-0.8); MONOCYTES % 2.7 % (4.4-11.3); NEUTROPHILS # (AUTO) 17.4 (2.1-6.9); NEUTROPHILS % 91.1 % (38.7-80.0); PLATELET COUNT 332 x10e3/uL (140-360); RED BLOOD COUNT 3.92 x10e6/uL (3.6-5.1); RED CELL DISTRIBUTION WIDTH 13.9 % (11.7-14.4)
[2018-12-22 05:40] LABS: ALANINE AMINOTRANSFERASE 18 IU/L (0-55); ALBUMIN 2.5 g/dL (3.5-5.0); ALBUMIN/GLOBULIN RATIO 0.7 (0.8-2.0); ALKALINE PHOSPHATASE 79 IU/L (40-150); ANION GAP 12.6 mmol/L (8-16); BLOOD UREA NITROGEN 24 mg/dL (7-26); BUN/CREATININE RATIO 30 (6-25); CARBON DIOXIDE 26 mmol/L (22-29); CHLORIDE 107 mmol/L (98-107); EST GLOMERULAR FILTRATION RATE > 60 ML/MIN (60-); GLUCOSE 139 mg/dL (74-118); MAGNESIUM 2.2 MG/DL (1.3-2.1); POTASSIUM 4.6 mmol/L (3.5-5.1); SODIUM 141 mmol/L (136-145)
[2018-12-22] MEDS: METHYLPREDNISOLONE SOD SUCC 125 MG/2ML VIAL IV SCH ×3 (06:32→21:55)
--- NOTE | 2018-12-22 07:09 | NUR ---
patient endorsed to next shift for continuity of care.
[2018-12-22] MEDS: NON-FORMULARY MEDICATION ([Trelegy] 1 INH) INH SCH (09:00)
[2018-12-22] MEDS: OSELTAMIVIR PHOSPHATE 75 MG CAP PO SCH ×2 (09:43→21:47)
[2018-12-22] MEDS: AMLODIPINE BESYLATE 10 MG TAB PO SCH (09:43)
[2018-12-22] MEDS: FOLIC ACID 1 MG TAB PO SCH (09:43)
[2018-12-22] MEDS: BENAZEPRIL HCL 10 MG TAB PO SCH (09:44)
[2018-12-22] MEDS: AZITHROMYCIN 250MG/NS 100 ML 100 ML IV SCH (09:46)
--- NOTE | 2018-12-22 13:09 | Progress Note ---
DATE: 12/22/2018 Medicine Progress Note SUBJECTIVE: The patient is still very short of breath on examination. I discussed the case with the nurse. The patient stated she wants to go home. I discussed with her that she can leave against medical advice, but she is not ready for discharge at this time. OBJECTIVE: VITAL SIGNS: Temperature is 97.6, pulse 80, respiratory rate is 16, blood pressure is 121/56, and pulse ox 100% on 2 L nasal cannula. GENERAL: Not in acute distress. Alert and oriented x3. Cooperative on examination. HEENT: Head is normocephalic and atraumatic. Eyes; pupils are equal, round, and reactive to light bilaterally. Extraocular movements are intact bilaterally. Throat, no evidence of erythema or exudates in the posterior pharynx. Has poor dentition. NECK: Supple. Good range of motion. PULMONARY: She has decreased breath sounds bilaterally. She has expiratory wheezing. CARDIOVASCULAR: Positive S1, S2. No murmurs, rubs, or gallops appreciated. ABDOMEN: Soft, nondistended, and nontender to palpation. Bowel sounds present. MUSCULOSKELETAL: Strength is 5/5 throughout. No evidence of any muscle deficits on examination. No weakness appreciated. NEUROLOGICAL: Cranial nerves II through XII grossly intact. No evidence of any neurological deficits on exam. SKIN: Intact. Warm to touch. Good cap refill. PSYCHIATRIC: Normal affect and mood. EXTREMITIES: No edema. Good range of motion throughout. LAB FINDINGS: Show white count 19, hemoglobin 10.7, hematocrit 34, and platelets of 332. Chemistry; sodium 141, potassium 4.6, chloride 107, bicarb 26, anion gap , BUN 24, creatinine is 0.8, glucose is 179, calcium is . LFTs were normal. Albumin is 2.5. Blood cultures were negative. IMAGING: None. IMPRESSION: 1. Acute exacerbation of chronic obstructive pulmonary disease. 2. Influenza B positive. 3. Concerns for community-acquired pneumonia superimposed from underlying flu. 4. Hypertension. 5. Type 2 diabetes. 6. Rheumatoid arthritis. PLAN: At this time, continue with steroids, neb treatments, and antibiotics. Vancomycin has been added to the concern for underlying superimposed infection from underlying flu with community-acquired pneumonia. Pulmonary and ID are following closely. Get a.m. labs. She is on oxygen, but she is still very short of breath on examination and she is not ready for discharge. Though she wants to go home, I suggested to her to continue stay in and I will leave it up to her what she wants to do, but she is not ready for discharge at this time. She will likely be here several more days. The patient refuses the cardiac telemetry as well. Continue same plan of care. MD ERICA Lopez/IANL /[id number]
[2018-12-22] MEDS: CEFEPIME 1GM/NS 0.9% 50 ML 50 ML IV SCH ×2 (13:27→23:49)
--- NOTE | 2018-12-22 13:42 | NUR ---
EDUCATED ABOUT IMM, SIGNED, FILED IN CHART, WITH COPY LEFT WITH FAMILY AT BEDSIDE.
--- NOTE | 2018-12-22 15:07 | NUR ---
CASE MANAGEMENT INITIAL ASSESSMENT Sidehand to bedside to discuss plan of care with patient/family. CM/SW role and care transitions discussed. Anticipated discharge plan discussed along with duration of care. CM/SW discussed patients right to make decisions in care. CM/SW work hours given. Patient lives: W IN A 1 STORY HOME W 10 STAIRS TO ENTRANCE Admit/Transfer: ER Hospital/ER visits since last admit: STATES SHE WAS ADMITTED LAST MONTH TO A [facility] [place] [place], [place] W THE SAME SYMPTOMS POA/Emergency contact: FRANCISCO JAVIER / @ [phone] Current/Previous Home Health: PT IS ON SERVICE [facility] / SNV 1X/WEEK PCP/Follow-up Care: DR. SAAVEDRA, HAS BLOCKERS [employer] / NOHEMI, BUT STATES SHE WANTS TO CHANGE IT, MAINTENANCE CUSTODIAN @ [facility] Current/Previous DME: [facility] HOME O2 Medications (referring to index hospitalization or the first time you were in the hospital) a. Were changes made in your medications when you were in the hospital on [date of index hospitalization]? No b. Did you understand the changes? No c. Were you able to obtain your new medications right away? Yes d. Were you able to take your medications like the doctor wanted you to? Yes e. Did the hospital give you an accurate, easy to understand list of medications when you left? Yes Scale of 1-10 how comfortable does patient feel with disease management in outpatient settin Other Services: RECEIVES INFUSIONS MONTHLY FOR OSTEOPOROSIS Employment Status: RETIRED Areas of Concerns: CONCERNED ABOUT LTAC STAY BEING TOO LONG. STATES SHE CARES FOR HER AT HOME. Referral Needs: LTAC Education Needs: NONE IMM/WEI given and signed (if applicable): PT SIGNED IMM Goal for discharge: DC TO LTAC X 7-10DAYS, THEN HOME CM/SW left business card at the bedside with contact information. Name and number was also written on the patients whiteboard. Patient verbalized understanding of discussion. CM will follow-up with ongoing discharge and transition of care needs.
--- NOTE | 2018-12-22 15:15 | NUR ---
ORDER RECEIVED FOR LTAC PER DR. SKAGGS. STATES THE PT AGREED TO GO TO AN LTAC FOR 14 DAYS. DISCUSSED 21DAYS OR > AT THE LTAC. REQUESTED CM TRYA ND IF A DENIAL IS ISSUED, THEN HOME. CM MET W THE PT AT THE BEDSIDE. EXPLAINED LTAC TO THE PT. PT VERBALIZED UNDERSTANDING. STATES SHE ONLY WANTS THE HOSPITALIZATION 7-10 DAYS, THEN HOME. EXPLAINED LTAC EXPECTATIONS. PT AGREED TO 2 WEEKS IN LTAC. CHOICE LETTER WAS SIGNED FOR [facility]. NOTIFIED CECY Reese GHOSH OF EVAL.
[2018-12-22] MEDS: ENOXAPARIN SOD INJ 40 MG/0.4 ML SYR SC SCH ×2 (17:00→19:25)
[2018-12-22] MEDS: TRAZODONE HCL 50 MG TAB PO SCH (21:00)
--- NOTE | 2018-12-22 22:20 | NUR ---
Patient transferred from [facility] via wheelchair in stable condition. A&O x2, ambulatory w/ minimal stand by assist. Patient is SOB w/ ambulation, NC @ 2L. IV to L AC 20g SL, patent and no infiltration noted. Patient denies any pain or issues at this time.
[2018-12-22] MEDS: GUAIFENESIN/CODEINE 10 ML CUP PO PRN (22:43)
[2018-12-22] MEDS ORDERED: SODIUM CHLORIDE 0.9% 250ML 250 ML ONE (23:35)
[2018-12-23 00:03] VITALS: BP 169/78
[2018-12-23] MEDS: LEVALBUTEROL HCL SOLN NEBU 1.25 MG/3 ML NEB INH SCH ×6 (03:00→23:18)
[2018-12-23] MEDS: VANCOMYCIN 1GM/NS 250 ML 250 ML IV SCH ×2 (03:42→16:56)
[2018-12-23 04:00] VITALS: BP 153/74
[2018-12-23 05:51] LABS: BASOPHILS % 0.1 % (0.0-1.0); HEMATOCRIT 34.5 % (34.2-44.1); LYMPHOCYTES # (AUTO) 0.7 (1.0-3.2); LYMPHOCYTES % 6.5 % (18.0-39.1); MEAN CORPUSCULAR HEMOGLOBIN 27.3 pg (28-32); MEAN CORPUSCULAR HGB CONC 31.9 g/dL (31-35); MEAN CORPUSCULAR VOLUME 85.6 fL (81-99); MONOCYTES # (AUTO) 0.3 (0.2-0.8); MONOCYTES % 2.2 % (4.4-11.3); NEUTROPHILS # (AUTO) 10.3 (2.1-6.9); NEUTROPHILS % 90.2 % (38.7-80.0); PLATELET COUNT 330 x10e3/uL (140-360); RED BLOOD COUNT 4.03 x10e6/uL (3.6-5.1); RED CELL DISTRIBUTION WIDTH 13.9 % (11.7-14.4)
[2018-12-23 06:06] LABS: BLOOD UREA NITROGEN 27 mg/dL (7-26); BUN/CREATININE RATIO 37 (6-25); CALCIUM 9.1 mg/dL (8.4-10.2); CARBON DIOXIDE 28 mmol/L (22-29); CHLORIDE 106 mmol/L (98-107); CREATININE, SERUM 0.73 mg/dL (0.57-1.11); EST GLOMERULAR FILTRATION RATE > 60 ML/MIN (60-); GLUCOSE 133 mg/dL (74-118); SODIUM 141 mmol/L (136-145)
[2018-12-23 06:27] LABS: ANION GAP 12.6 mmol/L (8-16)
[2018-12-23] MEDS: METHYLPREDNISOLONE SOD SUCC 125 MG/2ML VIAL IV SCH ×3 (06:27→21:22)
[2018-12-23 06:33] LABS: POTASSIUM 5.6 mmol/L (3.5-5.1)
--- NOTE | 2018-12-23 07:43 | NUR ---
Pt K-5.6 and level reported to Dr. Gunn and received orders to give Kayexalate 30g X1 and Lasix 40mg IV X1. Also received orders to stop benazepril.
[2018-12-23] MEDS ORDERED: SOD POLYSTYRENE SULFONATE SUSP 15 GM/60 ML BTL PO ONE (07:45)
[2018-12-23] MEDS ORDERED: FUROSEMIDE INJ 10 MG/ML 4 ML VIAL IV ONE (07:45)
[2018-12-23 08:00] VITALS: BP 159/77
[2018-12-23] MEDS: NON-FORMULARY MEDICATION ([Trelegy] 1 INH) INH SCH (09:00)
[2018-12-23] MEDS: AZITHROMYCIN 250MG/NS 100 ML 100 ML IV SCH (09:30)
[2018-12-23] MEDS: FOLIC ACID 1 MG TAB PO SCH (09:32)
[2018-12-23] MEDS: AMLODIPINE BESYLATE 10 MG TAB PO SCH (09:33)
[2018-12-23] MEDS: OSELTAMIVIR PHOSPHATE 75 MG CAP PO SCH ×2 (09:33→16:56)
[2018-12-23 12:00] VITALS: BP 169/71
[2018-12-23] MEDS: CEFEPIME 1GM/NS 0.9% 50 ML 50 ML IV SCH ×2 (12:24→23:29)
--- NOTE | 2018-12-23 14:54 | Progress Note ---
DATE: 12/23/2018 Medicine Progress Note SUBJECTIVE: The patient is doing well today. She does still get short of breath upon ambulation. OBJECTIVE: VITAL SIGNS: Temperature is 96.9, pulse is 68, respiratory rate is 20, blood pressure 159/77, pulse ox 97% on 2 L nasal cannula. GENERAL: Not in acute distress. Alert and oriented x3. Cooperative on examination. HEENT: Head is normocephalic and atraumatic. Eyes; pupils are equal, round, and reactive to light bilaterally. Extraocular movements are intact bilaterally. NECK: Supple. Good range of motion. Throat, no evidence of erythema or exudates in the posterior pharynx. Has poor dentition. PULMONARY: Clear to auscultation bilaterally. No wheezing, no rales, no rhonchi. No crackles appreciated. CARDIOVASCULAR: Positive S1, S2. No murmurs, rubs, or gallops appreciated. ABDOMEN: Soft nondistended, nontender to palpation. Bowel sounds present. MUSCULOSKELETAL: Strength is 5/5 throughout. No evidence of muscle deficits on examination. No weakness appreciated. NEUROLOGICAL: Cranial nerves II through XII grossly intact. No evidence of any neurological deficits on exam. SKIN: Intact. Warm to touch. Good cap refill. PSYCHIATRIC: Normal affect and mood. EXTREMITIES: No edema. Good range of motion throughout. LAB FINDINGS: Show white count of 11.3, hemoglobin 11, hematocrit is 34, platelets of 330. Chemistry; sodium is 141, potassium is 5.6, chloride 106, bicarb 28, anion gap of 12, BUN 27, creatinine is 0.73, glucose is 133, calcium is 9.1, CRP pending. MICROBIOLOGY: Blood cultures negative. IMAGING STUDIES: None. IMPRESSION: 1. Acute exacerbation of chronic obstructive pulmonary disease. 2. Influenza B positive. 3. Concerns for community-acquired pneumonia superimposed from underlying flu. 4. Hypertension. 5. Type 2 diabetes. 6. Rheumatoid arthritis. PLAN: Continue with steroids, neb treatments, antibiotics. She is also on IV vancomycin. ID and Pulmonary are following. She still gets very short of breath upon ambulation. She was also found to be hyperkalemic today. I stopped her JEANINE inhibitor. Gave her Kayexalate 30 g p.o. x1. I also gave her Lasix 40 mg IV x1 as well. Get a.m. labs. Avoid potassium foods. Her renal function was normal though, not sure exactly the etiology of her higher potassium. Otherwise, we will continue with same plan of care and monitor her closely. I did discuss with her about LTAC. She seems to occasionally agree and sometimes not agree. She really wants to go home. She is not ready for discharge as she has still difficulty ambulating and becomes very short of breath. MD ERICA Lopez/MARSHALL /[id number]
[2018-12-23 16:00] VITALS: BP 147/64
[2018-12-23] MEDS: ENOXAPARIN SOD INJ 40 MG/0.4 ML SYR SC SCH ×2 (16:56→17:00)
[2018-12-23 20:00] VITALS: BP 161/72
[2018-12-23] MEDS: GUAIFENESIN/CODEINE 10 ML CUP PO PRN (20:25)
[2018-12-23] MEDS ORDERED: TRAZODONE HCL 50 MG TAB PO SCH (21:00)
[2018-12-23] MEDS: TRAZODONE HCL 50 MG TAB PO SCH (21:22)
[2018-12-24] VITALS (8 sets, daily range): BP systolic 141–174; BP diastolic 65–79
--- NOTE | 2018-12-24 02:34 | NUR ---
Dr. Escobar paged to notify critical lab result
[2018-12-24] MEDS: VANCOMYCIN 1GM/NS 250 ML 250 ML IV SCH (03:00)
[2018-12-24] MEDS: LEVALBUTEROL HCL SOLN NEBU 1.25 MG/3 ML NEB INH SCH ×6 (03:00→23:15)
[2018-12-24] MEDS: METHYLPREDNISOLONE SOD SUCC 125 MG/2ML VIAL IV SCH ×2 (06:02→17:26)
[2018-12-24 07:00] LABS: BASOPHILS % 0.1 % (0.0-1.0); HEMATOCRIT 37.9 % (34.2-44.1); HEMOGLOBIN 12.2 g/dL (12.0-16.0); MEAN CORPUSCULAR HEMOGLOBIN 27.3 pg (28-32); MEAN CORPUSCULAR HGB CONC 32.2 g/dL (31-35); MEAN CORPUSCULAR VOLUME 84.8 fL (81-99); MONOCYTES # (AUTO) 0.4 (0.2-0.8); MONOCYTES % 3.8 % (4.4-11.3); NEUTROPHILS # (AUTO) 8.1 (2.1-6.9); NEUTROPHILS % 85.1 % (38.7-80.0); PLATELET COUNT 328 x10e3/uL (140-360); RED BLOOD COUNT 4.47 x10e6/uL (3.6-5.1); RED CELL DISTRIBUTION WIDTH 13.9 % (11.7-14.4)
[2018-12-24 07:26] LABS: ANION GAP 16.9 mmol/L (8-16); CALCIUM 8.7 mg/dL (8.4-10.2); CREATININE, SERUM 0.94 mg/dL (0.57-1.11)
[2018-12-24 07:29] LABS: POTASSIUM 2.9 mmol/L (3.5-5.1)
--- NOTE | 2018-12-24 08:20 | NUR ---
Called Dr. Gunn to report K level of 2.9 and received orders to redraw k level stat and call with results.
[2018-12-24] MEDS: FOLIC ACID 1 MG TAB PO SCH (08:27)
[2018-12-24] MEDS: AMLODIPINE BESYLATE 10 MG TAB PO SCH (08:27)
[2018-12-24] MEDS: AZITHROMYCIN 250MG/NS 100 ML 100 ML IV SCH (08:27)
[2018-12-24] MEDS: OSELTAMIVIR PHOSPHATE 75 MG CAP PO SCH ×2 (08:27→17:26)
[2018-12-24] MEDS: NON-FORMULARY MEDICATION ([Trelegy] 1 INH) INH SCH (08:29)
--- NOTE | 2018-12-24 09:30 | NUR ---
Dr. Gunn here to see pt and new level of K is 2.8 and received orders for oral potassium 40 meq x2 for today.
--- NOTE | 2018-12-24 10:58 | Progress Note ---
DATE: 12/24/2018 Medicine Progress Note SUBJECTIVE: The patient is doing much better today. She is ambulating, not short of breath. She will probably be ready for discharge tomorrow. No overnight events. OBJECTIVE: VITAL SIGNS: Temperature is 95.6, pulse 88, respiratory rate is 20, blood pressure 141/65, pulse ox is 95% and she is on 2 L nasal cannula chronically. GENERAL: Not in acute distress. Alert and oriented x3. Cooperative on examination. HEENT: Head is normocephalic and atraumatic. Eyes; pupils are equal, round, and reactive to light bilaterally. Extraocular movements are intact bilaterally. Throat, no evidence of any erythema or exudates in the posterior pharynx. Has poor dentition. NECK: Supple. Good range of motion. PULMONARY: Clear to auscultation bilaterally. No wheezing, no rales, no rhonchi, no crackles appreciated. CARDIOVASCULAR: Positive S1, S2. No murmurs, rubs, or gallops appreciated. ABDOMEN: Soft, nondistended, and nontender to palpation. Bowel sounds present. MUSCULOSKELETAL: Strength is 5/5 throughout. No evidence of any muscle deficits on examination. SKIN: Intact. Warm to touch. Good cap refill. PSYCHIATRIC: Normal affect and mood. EXTREMITIES: No edema. Good range of motion throughout. LABORATORY DATA: Lab findings show white count 9.5, hemoglobin 12, hematocrit 37.9, and platelets of 328. Coagulation; PT 13, INR 0.98. Chemistry; sodium 143, potassium 2.8, chloride 101, bicarb 28, anion gap of 16, BUN is 28, creatinine is 0.94, glucose is 127, calcium is 8.7. Vanc trough was elevated at 33. MICROBIOLOGY: Negative. IMAGING STUDIES: None. IMPRESSION: 1. Acute exacerbation of chronic obstructive pulmonary disease. 2. Influenza B positive. 3. Community-acquired pneumonia superimposed underlying from flu. 4. Hypertension. 5. Type 2 diabetes mellitus. 6. Rheumatoid arthritis. 7. Hypokalemia. PLAN: Continue with steroids at a lower dose. Neb treatments, antibiotics. Vanc trough is elevated, we will hold vancomycin. ID and Pulmonary following. We will replace potassium. Get a.m. labs. The patient is actually doing very well and she could probably potentially be discharged home tomorrow. I discussed this with the nurse and the patient. MD ERICA Lopez/MARSHALL /[id number]
[2018-12-24] MEDS: POTASSIUM CHLORIDE 20 MEQ TAB CR PO SCH ×2 (11:05→17:26)
[2018-12-24] MEDS: CEFEPIME 1GM/NS 0.9% 50 ML 50 ML IV SCH ×2 (12:00→23:34)
[2018-12-24] MEDS: ENOXAPARIN SOD INJ 40 MG/0.4 ML SYR SC SCH (17:00)
[2018-12-24] MEDS: GUAIFENESIN/CODEINE 10 ML CUP PO PRN (21:10)
[2018-12-24] MEDS: TRAZODONE HCL 50 MG TAB PO SCH (22:55)
[2018-12-25] VITALS: BP 154/69
[2018-12-25] MEDS: LEVALBUTEROL HCL SOLN NEBU 1.25 MG/3 ML NEB INH SCH ×3 (03:00→11:17)
[2018-12-25 04:00] VITALS: BP 152/72
[2018-12-25 06:32] LABS: BASOPHILS % 0.1 % (0.0-1.0); HEMATOCRIT 32.9 % (34.2-44.1); HEMOGLOBIN 10.5 g/dL (12.0-16.0); LYMPHOCYTES # (AUTO) 0.6 (1.0-3.2); LYMPHOCYTES % 8.8 % (18.0-39.1); MEAN CORPUSCULAR HEMOGLOBIN 27.1 pg (28-32); MEAN CORPUSCULAR HGB CONC 31.9 g/dL (31-35); MEAN CORPUSCULAR VOLUME 84.8 fL (81-99); MONOCYTES # (AUTO) 0.6 (0.2-0.8); NEUTROPHILS # (AUTO) 5.9 (2.1-6.9); NEUTROPHILS % 81.9 % (38.7-80.0); PLATELET COUNT 239 x10e3/uL (140-360); RED BLOOD COUNT 3.88 x10e6/uL (3.6-5.1); RED CELL DISTRIBUTION WIDTH 13.7 % (11.7-14.4)
--- NOTE | 2018-12-25 07:00 | NUR ---
PATIENT IS AWAKE, ALERT, AND IN STABLE CONDITION WITH NO S/S OF RESPIRATORY DISTRESS. NO PAIN VOICED. SON PRESENT IN ROOM. CALL LIGHT IS WITHIN REACH, PATIENT INSTRUCTED TO CALL FOR ASSISTANCE NEEDED.
[2018-12-25 07:01] LABS: ANION GAP 13.4 mmol/L (8-16); BLOOD UREA NITROGEN 32 mg/dL (7-26); BUN/CREATININE RATIO 39 (6-25); CALCIUM 8.2 mg/dL (8.4-10.2); CARBON DIOXIDE 29 mmol/L (22-29); CHLORIDE 103 mmol/L (98-107); CREATININE, SERUM 0.83 mg/dL (0.57-1.11); EST GLOMERULAR FILTRATION RATE > 60 ML/MIN (60-); GLUCOSE 126 mg/dL (74-118); POTASSIUM 3.4 mmol/L (3.5-5.1); SODIUM 142 mmol/L (136-145)
[2018-12-25 07:49] VITALS: BP 157/70
[2018-12-25 08:00] VITALS: BP 157/70
[2018-12-25] MEDS: NON-FORMULARY MEDICATION ([Trelegy] 1 INH) INH SCH (09:00)
[2018-12-25] MEDS: AZITHROMYCIN 250MG/NS 100 ML 100 ML IV SCH (09:00)
[2018-12-25] MEDS: METHYLPREDNISOLONE SOD SUCC 125 MG/2ML VIAL IV SCH ×2 (09:06→16:22)
[2018-12-25] MEDS: FOLIC ACID 1 MG TAB PO SCH (09:06)
[2018-12-25] MEDS: AMLODIPINE BESYLATE 10 MG TAB PO SCH (09:06)
--- NOTE | 2018-12-25 09:10 | NUR ---
IV REMOVED PER PATIENT'S REQUEST- PATIENT REFUSED IV ANTIBIOTIC AND NEW IV SITE.
[2018-12-25 11:19] VITALS: BP 158/77
[2018-12-25] MEDS: CEFEPIME 1GM/NS 0.9% 50 ML 50 ML IV SCH (11:22)
--- NOTE | 2018-12-25 11:22 | NUR ---
PATIENT AND SON INFORMED TO CALL [employer] TO PROVIDE A NEW O2 TANK PRIOR TO DISCHARGE. DR. PEPE ON THE UNIT- PATIENT ABLE TO DISCHARGE TODAY AFTER SPEAKING WITH DR. SKAGGS AND ONCE O2 IS AVAILABLE FOR THE PATIENT.
[2018-12-25] MEDS ORDERED: POTASSIUM CHLORIDE 20 MEQ TAB CR PO ONE (11:41)
--- NOTE | 2018-12-25 12:00 | NUR ---
RECEIVED CALL FROM NURSE STATING THE PT HAS BEEN DISCHARGED, BUT THE O2 TANK FROM HOME WAS EMPTY. MET W THE PT AND SPOUSE AT THE BEDSIDE. [facility] PT. SHE ARRANGED FOR AN O2 TANK TO BE DELIVERED TO HER ROOM. IMM LETTER WAS EXPLAINED. PT VERBALIZED UNDERSTANDING. IMM LETTER WAS SIGNED. COPY TO PT AND COPY TO CHART
[2018-12-25] MEDS ORDERED: PREDNISONE10 MG (12:02)
[2018-12-25] MEDS ORDERED: AUGMENTIN 875-1 EACH PO (12:08)
--- NOTE | 2018-12-25 13:49 | Progress Note ---
DATE: 12/25/2018 Medicine Progress Note SUBJECTIVE: The patient is doing much better today with no other issues. She did not bring her home oxygen tank for me to discharge her. We will discuss this with case management. The patient has been cleared by couple of consultants. OBJECTIVE: VITAL SIGNS: Temperature 97.1, pulse 87, respiratory rate is 20, blood pressure 150/77, pulse ox 98% on 2 L nasal cannula. GENERAL: Not in acute distress. Alert and oriented x3. Cooperative on examination. HEENT: Head is normocephalic and atraumatic. Eyes; pupils are equal, round, and reactive to light bilaterally. Extraocular movements are intact bilaterally. Throat, no evidence of erythema or exudates in the posterior pharynx. Has poor dentition. NECK: Supple. Good range of motion. PULMONARY: Clear to auscultation bilaterally. No wheezing, no rales, no rhonchi, no crackles appreciated. CARDIOVASCULAR: Positive S1, S2. No murmurs, rubs, or gallops appreciated. ABDOMEN: Soft, nondistended, and nontender to palpation. Bowel sounds present. MUSCULOSKELETAL: Strength is 5/5 throughout. No evidence of any muscle deficits on examination. No weakness appreciated. NEUROLOGICAL: Cranial nerves II through XII grossly intact. No evidence of any neurological deficits on exam. SKIN: Intact. Warm to touch. Good cap refill. PSYCHIATRIC: Normal affect and mood. EXTREMITIES: No edema. Good range of motion throughout. LABORATORY DATA: Lab findings show white count 7.2, hemoglobin 10.5, hematocrit is 33, and platelets of 239. Chemistry; sodium 142, potassium 3.4, chloride 103, bicarb 29, anion gap of 13, BUN is 22, creatinine is 0.83, glucose is 126, and calcium is 8.2. MICROBIOLOGY: Negative. IMPRESSION: 1. Acute exacerbation of chronic obstructive pulmonary disease. 2. Influenza B positive. 3. Community-acquired pneumonia superimposed from flu. 4. Hypertension. 5. Type 2 diabetes mellitus. 6. Rheumatoid arthritis. 7. Hypokalemia. PLAN: Possibly discharge home today antibiotics as well, which will be per ID. Pulmonary is following. The patient is mainly we will replace potassium. MD ERICA Lopez/MARSHALL /[id number]
[2018-12-25 15:39] VITALS: BP 146/69
--- NOTE | 2018-12-25 16:48 | NUR ---
OXYGEN TANK ARRIVED. PATIENT DISCHARGE HOME- PATIENT OFF THE UNIT AT 1643 PER WHEELCHAIR ACCOMPANIED BY PCT TO THE FRONT LOBBY. PATIENT DISCHARGE WITH O2 SET AT 2L NC. PATIENT IS IN STABLE CONDITION WITH NO S/S OF RESPIRATORY DISTRESS. NO PAIN VOICED. IV REMOVED WITH TIP INTACT AT 0910. DISCHARGE INSTRUCTIONS, TEACHING, AND MEDICATIONS GIVEN TO THE PATIENT. ALL PERSONAL ITEMS TAKEN WITH THE PATIENT AND HER SON.
--- NOTE | 2018-12-26 19:45 | Discharge Summary ---
FINAL DISCHARGE DIAGNOSES: 1. Acute exacerbation of chronic obstructive pulmonary disease. 2. Influenza B positive, complete treatment. 3. Community-acquired pneumonia. Discharged on oral Augmentin. 4. Hypertension. 5. Type 2 diabetes. 6. Rheumatoid arthritis. 7. Oxygen dependent. 8. Hypokalemia, resolved. CONSULTANTS: ID, Pulmonary. PHYSICAL EXAMINATION: VITAL SIGNS: Temperature is 97.2, pulse 86, respiratory rate is 18, blood pressure 146/69, and pulse ox is 98% on 2 L nasal cannula. LABORATORY DATA: Lab findings show white count 7.2, hemoglobin 10.5, hematocrit is 32, and platelets of 239. Chemistry; sodium 142, potassium 3.4, chloride 103, bicarb 29, anion gap of 13, BUN is 22, creatinine is 0.83, glucose is 126, calcium is 8.2. Troponins were all negative. Albumin was 2.5. CRP slightly elevated at 19. CK 66, normal. LFTs were normal. Total bilirubin is 0.2. Magnesium 2.2. Vanc trough 16. Serology, flu B positive. MICROBIOLOGY: Blood cultures were negative x2. IMAGING STUDIES: Chest x-ray was negative. CT chest shows no evidence of pulmonary embolism. Pulmonary edema was present. There is some scattered tree-in-bud nodularity predominantly in the right lower lung, may represent or reflect infectious bronchiolitis or aspiration. HOSPITAL COURSE: This is a 78-year-old female, who came into the ED with underlying cough, congestion, shortness of breath and wheezing. The patient was admitted and Pulmonary and ID were consulted. The patient was being treated for underlying COPD exacerbation, was also found to have flu B positive as well as community-acquired pneumonia. The patient was on IV steroids, neb treatments, and antibiotics. The patient improved throughout the hospital course. The patient continued with Tamiflu treatment while here in the hospital. She was discharged on oral antibiotics as per ID recommendations on Augmentin. The patient's oxygen requirement has decreased tremendously. The patient is already on home O2, 2-3 L. Home O2 was arranged as well as confirmed that she has at home. This was confirmed by Case Management. She was otherwise stable at baseline with no other complaints. She was cleared for discharge by both Pulmonary and ID for discharge home. On the day of discharge, vital signs stable, labs reviewed and stable. The patient was seen, evaluated, examined thoroughly on the day of discharge, no other complaints. The patient verbalized understanding and agreed to plan of care to follow up as an outpatient with the primary care physician in 1 week time. MEDICATIONS: See med reconciliation form including Augmentin as per ID recommendations. DISPOSITION: Home. CONDITION: Stable. DIET: Heart healthy. In the event of any worsening symptoms, the patient was advised to come back to the ED for further evaluation. Discharge summary took greater than 35 minutes. MD ERICA Lopez/IANL /[id number]
== END 2018-12-25 16:43 | disposition home or self-care (01) | DRG 871 ==
LOC: ER 14:25 → ERHOLD 18:11 → IMCU 21:13 → MED/SURG3 12-22 22:29
PROVIDERS: ADMIT Internal Medicine; ATTEND Internal Medicine
DX: A41.9 Sepsis, unspecified organism (principal); J11.08 Influenza due to unidentified influenza virus with specified pneumonia; J18.9 Pneumonia, unspecified organism; J44.1 Chronic obstructive pulmonary disease with (acute) exacerbation; J44.0 Chronic obstructive pulmonary disease with (acute) lower respiratory infection; I10 Essential (primary) hypertension; E11.9 Type 2 diabetes mellitus without complications; M06.9 Rheumatoid arthritis, unspecified
CPT/HCPCS: 36415; 71045; 71260; 80048; 80053; 80202; 82550; 82553; 82948; 83605; 83735; 83880; 84132; 84484; 85025; 85379; 85610; 86140; 87040; 87400; 93005; 94640; 99284; J0692; J0696; J1650; J1940; J2930; J3370; J7030; J7050; J8610; Q9967